=== PATIENT | male | born 1950 | race Hispanic/Latino ===

== ENCOUNTER 2017-02-21 15:11 | Inpatient (IN) | payer OTHER ==
[2017-02-21 15:11] VITALS: BMI 20.7
[2017-02-21] MEDS ORDERED: Piperacillin/Tazobact 3.375 GM in Sodium Chloride 0.9% 100 ML IVPB STA (15:41)
--- NOTE | 2017-02-21 16:06 | ED PDOC ---
HPI: General Adult Time Seen by Provider: 02/21/17 15:25 Chief Complaint (Nursing): Lower Extremity Problem/Injury Chief Complaint (Provider): R foot cellulitis History Per: Patient Additional Complaint(s): Pt. states 4-5 weeks ago he accidentally cut the bottom portion of his R big toe on his shower door. States he was seen in [place] 2 weeks after and was prescribed antibiotics which provided no relief. He was also instructed to f[facility] with [facility]. Today he was seen by Dr. Levi who instructed him to come to ED for further evaluation. Denies fever, discharge, numbness, tingling, other injury, hx of DM. Past Medical History Reviewed: Historical Data, Nursing Documentation, Vital Signs Vital Signs: Last Vital Signs Temp 98.5 F 02/21/17 15:17 Pulse 74 02/21/17 15:17 Resp 16 02/21/17 15:17 BP 161/80 H 02/21/17 15:17 Pulse Ox 100 02/21/17 16:09 - Medical History PMH: Arthritis, HTN Denies: Chronic Kidney Disease - Family History Family History: States: No Known Family Hx - Immunization History Hx Tetanus Toxoid Vaccination: No Hx Influenza Vaccination: No Hx Pneumococcal Vaccination: No - Home Medications Home Medications: Ambulatory Orders Medication Instructions Recorded oxyCODONE/Acetaminophen [Percocet 1 tab PO BID PRN 07/25/16 5/325 mg Tab] Losartan [Cozaar] 100 mg PO DAILY 02/21/17 - Allergies Allergies/Adverse Reactions: Allergies Allergy/AdvReac Type Severity Reaction Status Date / Time No Known Allergies Allergy Verified 02/21/17 15:17 Review of Systems ROS Statement: Except As Marked, All Systems Reviewed And Found Negative Musculoskeletal: Positive for: Foot Pain Physical Exam - Reviewed Nursing Documentation Reviewed: Yes Vital Signs Reviewed: Yes - Physical Exam Appears: Positive for: Well, Non-toxic, No Acute Distress Head Exam: Positive for: ATRAUMATIC, NORMAL INSPECTION, NORMOCEPHALIC Skin: Positive for: Normal Color, Warm. Negative for: Rash Eye Exam: Positive for: EOMI, Normal appearance, PERRL ENT: Positive for: Normal ENT Inspection Neck: Positive for: Normal, Painless ROM Cardiovascular/Chest: Positive for: Regular Rate, Rhythm Respiratory: Positive for: CNT, Normal Breath Sounds Pulses-Dorsalis Pedis (R): 2+ Gastrointestinal/Abdominal: Positive for: Normal Exam, Soft. Negative for: Tenderness Back: Positive for: Normal Inspection Extremity: Positive for: Normal ROM, Other (R foot: shallow ulcer noted on plantar surface of R great toe and surrounding erythema extending to dorsum of foot ) Neurologic/Psych: Positive for: Alert, Oriented - Laboratory Results Result Diagrams: 02/21/17 16:40 02/21/17 16:40 - ECG ECG: Positive for: Interpreted By Me ECG Rhythm: Positive for: Sinus Rhythm. Negative for: ST/T Changes Rate: 68 O2 Sat by Pulse Oximetry: 100 - Progress ED Course And Treament: Labs ordered. Blood culture x 2, wound culture ordered. Zosyn IV, vancomycin IV given. Case d/w podiatry and arrangements made for admission. Case d/w Dr. Herndon, med surgeon assistant, and arrangements made for admission. Foot x-ray: no osteo Disposition - Clinical Impression Clinical Impression: Cellulitis of foot - Patient ED Disposition Is Patient to be Admitted: Yes - Disposition Disposition Time: 17:47 Condition: STABLE
[2017-02-21] MEDS ORDERED: Piperacillin/Tazobact 3.375 gm Inj IVPB ONE (16:09)
[2017-02-21] MEDS ORDERED: Vancomycin 1 g Inj ONE (16:09)
[2017-02-21 16:51] LABS: BASO # 0.1 K/uL (0.0-0.2); BASO % 0.6 % (0.0-2.0); EOS # 0.1 K/uL (0.0-0.7); EOS % 0.6 % (0.0-4.0); HEMATOCRIT 37.4 % (35.0-51.0); LYMPH # 1.6 K/uL (1.0-4.3); LYMPH % 11.6 % (20.0-40.0); MEAN CELL VOLUME 97.3 fl (80.0-94.0); MEAN CORPUSCULAR HEMOGLOBIN 32.4 pg (27.0-31.0); MEAN CORPUSCULAR HGB CONC 33.3 g/dL (33.0-37.0); MEAN PLATELET VOLUME 7.3 fl (7.2-11.7); MONO # 1.1 K/uL (0.0-0.8); MONO % 8.2 % (0.0-10.0); RED CELL DISTRIBUTION WIDTH 14.8 % (11.5-14.5); WHITE BLOOD COUNT 13.9 K/uL (4.8-10.8)
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
[2017-02-21 17:11] LABS: PARTIAL THROMBOPLASTIN TIME 30.4 SECONDS (23.3-32.5)
[2017-02-21 17:13] LABS: ALB/GLOB RATIO 1.1 (1.0-2.1); ALKALINE PHOSPHATASE 81 U/L (38-126); ALT/SGPT 26 U/L (21-72); AST/SGOT 28 U/L (17-59); BILIRUBIN,TOTAL 0.9 mg/dl (0.2-1.3); BLOOD UREA NITROGEN 20 mg/dl (9-20); CALCIUM 9.9 mg/dL (8.4-10.2); CARBON DIOXIDE 28 mmol/L (22-30); CHLORIDE 98 mmol/L (98-107); GFR AFRICAN-AMERICAN > 60; GLUCOSE,RANDOM 110 mg/dL (75-110); POTASSIUM 3.8 MMOL/L (3.6-5.0); SODIUM 138 mmol/l (132-148); TOTAL PROTEIN 7.9 G/DL (6.3-8.2)
--- NOTE | 2017-02-21 17:14 | RAD ---
HISTORY: Medical clearance. Technique: Single view portable semi erect @ 16:07. COMPARISON: No prior. FINDINGS: LUNGS: No active pulmonary disease. PLEURA: No significant pleural effusion identified, no pneumothorax apparent. CARDIOVASCULAR: No radiographic findings to suggest acute or significant cardiovascular disease. OSSEOUS STRUCTURES: No significant abnormalities. VISUALIZED UPPER ABDOMEN: Normal. OTHER FINDINGS: None. IMPRESSION: No active disease.
--- NOTE | 2017-02-21 17:15 | RAD ---
PROCEDURE: Right Foot Radiographs. HISTORY: R foot cellulitis COMPARISON: None. FINDINGS: BONES: Postoperative changes related to orthopedic hardware distal fibula. Severe degenerative changes right ankle incompletely visualized affecting talotibial and talofibular joints. JOINTS: Normal. SOFT TISSUES: Normal. OTHER FINDINGS: None. IMPRESSION: Postoperative changes, secondary degenerative/ posttraumatic findings primarily about the ankle affecting talus, distal tibia and fibula primarily. No evidence of acute osteomyelitis.
[2017-02-21 17:55] LABS: VENOUS BLOOD GAS PCO2 46 mmHg (40-60)
[2017-02-22] MEDS: Piperacillin/Tazobact 3.375 GM in Sodium Chloride 0.9% 100 ML IVPB SCH ×3 (01:02→17:06)
--- NOTE | 2017-02-22 07:56 | CP.PCM.PN ---
Subjective - Date & Time of Evaluation Date of Evaluation: 02/22/17 Time of Evaluation: 08:45 - Subjective Subjective: PODIATRY PROGRESS NOTE FOR DR. LEVI: 66 yo male patient w/ pmh CVA, HTN, lumbar radiculopathy seen at the bedside this morning for f/u of right hallux ulceration. Pt seen resting comfortably in bed at time of visit. Denies any pain or discomfort to the foot or leg today. Denies f/n/v/c/sob/cp. Has been wearing surgical shoe with heal weight-bearing to get to bathroom. Denies any other complaints at this time. Objective - Vital Signs/Intake and Output Vital Signs (last 24 hours): Temp Pulse Resp BP Pulse Ox 98.2 F 86 20 150/70 98 02/21/17 20:30 02/21/17 20:30 02/21/17 20:30 02/21/17 20:30 02/21/17 20:30 - Medications Medications: Current Medications Vancomycin HCl 1 gm/ Sodium (Chloride) 250 mls @ 250 mls/hr IVPB Q12H REPLACED BY [facility] Last Admin: 02/21/17 22:57 Dose: Not Given Piperacillin Sod/Tazobactam (Sod 3.375 gm/ Sodium Chloride) 100 mls @ 100 mls/ hr IVPB Q8 REPLACED BY [facility] Last Admin: 02/22/17 01:02 Dose: 100 mls/hr Losartan Potassium (Cozaar) 100 mg PO DAILY REPLACED BY [facility] Oxycodone/Acetaminophen (Percocet 5/325 Mg Tab) 1 tab PO BID PRN PRN Reason: Pain, severe (8-10) Stop: 02/24/17 22:01 - Labs Labs: PT 9.7 SECONDS (9.6-11.2) 02/21/17 16:40 INR 0.93 (0.92-1.08) 02/21/17 16:40 APTT 30.4 SECONDS (23.3-32.5) 02/21/17 16:40 - Constitutional Appears: Non-toxic, No Acute Distress - Extremities Exam Extremities Exam: absent: Calf Tenderness Additional comments: RLE exam: Dressing appears c/d/i to the right foot. VASC- DP pulse is palpable (2/4), PT pulse non-palpable, skin temp runs warm to warm with increased callor noted to dorsal-medial aspect of foot as well as hallux circumferentially, 2+ non-pitting edema noted to dorsum, and medial- plantar aspect of foot. NEURO- gross pedal sensation is intact DERM- ulceration to plantar aspect of hallux IPJ with mixed fibro-granular base , 0.5cc purulent drainage expressed on compression, no malodor, no tracking, erythema is noted to dorsal-medial as well as plantar-medial aspect of foot from mid-foot extending distally to hallux circumferentially ORTHO- slight tenderness to palpation of hallux ulceration, diffuse tenderness to palpation of foot, able to flex and extend all digits - Neurological Exam Neurological Exam: Alert, Awake, Oriented x3 - Psychiatric Exam Psychiatric exam: Normal Affect, Normal Mood Assessment and Plan - Assessment and Plan (Free Text) Assessment: 66 yo male patient w/ pmh of stroke, HTN, lumbar radiculopathy seen in ED for hallux ulceration and pedal cellulitis 2/2 infection Plan: --Pt S&E at bedside --Plan discussed with attending Dr. Levi --Chart, labs, vitals reviewed: afebrile, wbc 13.9 w/ left shift --ESR elevated at 89 --F/u CRP --f/u wound cx --IV abx per ID (Dr. Higginbotham), vanc and zoabeln --Right foot x-ray: no evidence of gas, (-) for OM, postoperative changes secondary to degenerative/posttraumatic findings about ankle affecting talus, disal tibia, fibula --3 phase bone scan ordered for today (r/o OM). MRI contraindicated due to ORIF right distal fibula (metal not compatible) --Consult in for Dr. Morales to evaluate lower extremity arterial flow. --Arterial doppler ordered --Pending results of bone scan and arterial doppler, for possible debridement w / Dr. Levi later in week. --Pt is medically stable for OR (if needed) per Dr. Herndon --All questions and concerns addressed with patient --Podiatry will continue to follow while in house.
--- NOTE | 2017-02-22 09:14 | CP.PCM.HP ---
History of Present Illness - History of Present Illness History of Present Illness: This is a 66 y/o male admitted for right foot cellulitis. He sustained a wound after an accident at home ( from a shower door) about 5 weeks ago and developed cellulitis and infected wound of the right big toe.He was treated at [facility] and given po antibiotics but had a poor response, Had seen Dr Levi and advised Iv antibiotics and hospitalization. Medical Hx Fracture right foot HTN on Losartan CVA with gait dysfunction back surgery Chronic pain on Percocet patient lives alone. Initial labs showed WBC 13 plus Present on Admission - Present on Admission Any Indicators Present on Admission: No History of DVT/PE: No History of Uncontrolled Diabetes: No Urinary Catheter: No Decubitus Ulcer Present: No Review of Systems - Musculoskeletal Musculoskeletal: Back Pain - Integumentary Integumentary: Non-Healing Lesions Past Patient History - Past Medical History & Family History Past Medical History?: Yes - Past Social History Smoking Status: Light Smoker < 10 Cigarettes Daily - CARDIAC Hx Hypertension: Yes - PULMONARY Hx Respiratory Disorders: No - NEUROLOGICAL Hx Neurological Disorder: No - HEENT Hx HEENT Problems: No - RENAL Hx Chronic Kidney Disease: No - ENDOCRINE/METABOLIC Hx Endocrine Disorders: No - HEMATOLOGICAL/ONCOLOGICAL Hx AIDS: No Hx Human Immunodeficiency Virus (HIV): No - INTEGUMENTARY Hx Dermatological Problems: No - MUSCULOSKELETAL/RHEUMATOLOGICAL Hx Arthritis: Yes Hx Falls: Yes Other/Comment: lumbar radiculopathy - GASTROINTESTINAL Hx Gastrointestinal Disorders: No - GENITOURINARY/GYNECOLOGICAL Hx Genitourinary Disorders: No - PSYCHIATRIC Hx Substance Use: No - SURGICAL HISTORY Hx Surgeries: Yes Hx Open Reduction Internal Fixation: Yes (rt distal fibula) Other/Comment: epidural,[id number] - ANESTHESIA Hx Anesthesia: Yes Hx Anesthesia Reactions: No Hx Malignant Hyperthermia: No Meds Allergies/Adverse Reactions: Allergies Allergy/AdvReac Type Severity Reaction Status Date / Time No Known Allergies Allergy Verified 02/21/17 15:17 Physical Exam - Head Exam Head Exam: NORMAL INSPECTION - Eye Exam Eye Exam: Normal appearance - Respiratory Exam Respiratory Exam: Clear to Auscultation Bilateral - Cardiovascular Exam Cardiovascular Exam: REGULAR RHYTHM - GI/Abdominal Exam GI & Abdominal Exam: Normal Bowel Sounds - Neurological Exam Neurological exam: CN II-XII Intact, Oriented x3 - Psychiatric Exam Psychiatric exam: Normal Mood - Skin Additional comments: infected nonhealing wound right big toe and surrounding cellulitis Results - Vital Signs Recent Vital Signs: Last Vital Signs Temp 98.7 F 02/22/17 08:16 Pulse 71 02/22/17 08:26 Resp 20 02/22/17 08:16 BP 137/84 02/22/17 08:26 Pulse Ox 98 02/22/17 08:16 - Labs Result Diagrams: 02/21/17 16:40 02/21/17 16:40 Labs: Laboratory Results - last 24 hr 02/21/17 02/21/17 02/21/17 17:54 18:26 20:45 ESR 89 H pO2 32 VBG pH 7.40 VBG pCO2 46 VBG HCO3 26.3 VBG Total CO2 29.9 H VBG O2 Sat (Calc) 65.4 H VBG Base Excess 3.0 H VBG Potassium 4.1 Sodium 133.0 Chloride 103.0 Glucose 105 Lactate 1.6 FiO2 21.0 Venous Blood Potassium 4.1 Blood Type Confirm A POSITIVE Assessment & Plan (1) Cellulitis of foot Status: Acute (2) Hypertension Status: Acute (3) Infected wound Status: Acute - Assessment and Plan (Free Text) Plan: Iv antibiotics' podiatry cardiology arterial US lower ext CXR and ekg reviewed pain meds sed rate bone scan medically stable for debridemet procedure.
[2017-02-22 11:16] LABS: BASO # 0.1 K/uL (0.0-0.2); EOS # 0.1 K/uL (0.0-0.7); EOS % 0.5 % (0.0-4.0); HEMATOCRIT 35.1 % (35.0-51.0); LYMPH # 1.5 K/uL (1.0-4.3); LYMPH % 11.7 % (20.0-40.0); MEAN CELL VOLUME 96.1 fl (80.0-94.0); MEAN CORPUSCULAR HEMOGLOBIN 32.8 pg (27.0-31.0); MEAN CORPUSCULAR HGB CONC 34.2 g/dL (33.0-37.0); MEAN PLATELET VOLUME 7.3 fl (7.2-11.7); MONO % 7.9 % (0.0-10.0); NEUT # 9.8 K/uL (1.8-7.0); NEUT % 78.9 % (50.0-75.0); NRBC % 0.1 % (0.0-0.0); RED CELL DISTRIBUTION WIDTH 14.6 % (11.5-14.5); RETIC% 1.7 % (0.5-1.5); WHITE BLOOD COUNT 12.4 K/uL (4.8-10.8)
--- NOTE | 2017-02-22 11:38 | CARD ---
APPROVED REPORT EKG Measurement Heart [id number] <Conclusion> Normal sinus rhythm Normal ECG
--- NOTE | 2017-02-22 16:02 | US ---
PROCEDURE: Duplex ultrasound of the right lower extremity arteries. HISTORY: evalute low ext arterial flow COMPARISON: None available. TECHNIQUE: Grayscale and duplex Doppler evaluation of the left common femoral, superficial femoral, popliteal, posterior tibial and dorsalis pedis arteries was performed.. FINDINGS: COMMON FEMORAL ARTERY: Patent. Maximal flow velocity of 80 cm/s. Triphasic waveform SUPERFICIAL FEMORAL ARTERY:Patent. Maximal flow velocity of 118 cm/s. Triphasic waveform POPLITEAL ARTERY:Patent. Maximal flow velocity of 30 cm/s. Monophasic waveform, spectral broadening. POSTERIOR TIBIAL ARTERY: Patent. Maximal flow velocity of 30 cm/s. Monophasic waveforms DORSALIS PEDIS ARTERY: Nondiagnostic assessment dorsalis pedis artery because of overlying bandages. OTHER FINDINGS: None. IMPRESSION: Peripheral arterial flow documented to the level of the right posterior tibial artery. Nondiagnostic assessment of the dorsalis pedis vessel. Satisfactory inflow, a diminished peak systolic velocities popliteal artery and posterior tibial artery. Associated atherosclerotic disease, moderate identified.
--- NOTE | 2017-02-22 16:28 | NM ---
PROCEDURE: Three-phase bone scan HISTORY: right foot ulcer, r/o OM/abscess COMPARISON: February 21, 2017. Right foot radiographs. TECHNIQUE: Radionuclide dose: 26.5 Tc99m MDP Site of administration: Indwelling intravenous line Technique: Three-phase FINDINGS: Flow component: Increased flow to the right lower extremity particularly medial at at and beyond the metatarsal phalangeal junctions. Blood pool component: Accumulation of radionuclide primarily about the medial and plantar aspects of the right foot Delayed images at 3:00: Retention of radionuclide right ankle consistent with postoperative findings best visualized on recent radiographs. Focal increased uptake first digit right foot. IMPRESSION: Findings consistent with cellulitis without evidence of acute osteomyelitis.
--- NOTE | 2017-02-22 17:38 | CP.PCM.CON ---
History of Present Illness - History of Present Illness History of Present Illness: Pt. states 4-5 weeks ago he accidentally cut the bottom portion of his R big toe on his shower door. [facility] he was seen in [place] 2 weeks after and was prescribed antibiotics which provided no relief. He was also instructed [facility] Today he was seen by Dr. Levi who instructed him to come to ED for further evaluation. Denies fever, discharge, numbness, tingling, other injury, hx of DM. started empiric iv rx bone scan pending - Medical History PMH: Arthritis, HTN Denies: Chronic Kidney Disease Review of Systems - Constitutional Constitutional: absent: As Per HPI, Anorexia, Chills, Daytime Sleepiness, Excessive Sweating, Fatigue, Fever, Frequent Falls, Headache, Increased Appetite , Lethargy, Malaise, Night Sweats, Snoring, Sleep Apnea, Weight Gain, Weight Loss, Weakness, Other - EENT Eyes: absent: As Per HPI, Blind Spots, Blurred Vision, Change in Vision, Decreased Night Vision, Diplopia, Discharge, Dry Eye, Exophthalmos, Floaters, Irritation, Itchy Eyes, Loss of Peripheral Vision, Pain, Photophobia, Requires Corrective Lenses, Sees Flashes, Spots in Vision, Tunnel Vision, Other Visual Disturbances, Loss of Vision, Other Ears: absent: As Per HPI, Decreased Hearing, Ear Discharge, Ear Pain, Tinnitus, Abnormal Hearing, Disequilibrium, Dizziness, Other Nose/Mouth/Throat: absent: As Per HPI, Epistaxis, Nasal Congestion, Nasal Discharge, Nasal Obstruction, Nasal Trauma, Nose Pain, Post Nasal Drip, Sinus Pain, Sinus Pressure, Bleeding Gums, Change in Voice, Dental Pain, Dry Mouth, Dysphagia, Halitosis, Hoarsness, Lip Swelling, Mouth Lesions, Mouth Pain, Odynophagia, Sore Throat, Throat Swelling, Tongue Swelling, Facial Pain, Neck Pain, Neck Mass, Other - Cardiovascular Cardiovascular: absent: As Per HPI, Acrocyanosis, Chest Pain, Chest Pain at Rest , Chest Pain with Activity, Claudication, Diaphoresis, Dyspnea, Dyspnea on Exertion, Edema, Irregular Heart Rhythm, Pain Radiating to Arm/Neck/Jaw, Leg Edema, Leg Ulcers, Lightheadedness, Orthopnea, Palpitations, Paroxysmal Nocturnal Dyspnea, Pedal Edema, Radiating Pain, Rapid Heart Rate, Slow Heart Rate, Syncope, Other - Respiratory Respiratory: absent: As Per HPI, Cough, Dyspnea, Hemoptysis, Dyspnea on Exertion , Wheezing, Snoring, Stridor, Pain on Inspiration, Chest Congestion, Excessive Mucous Production, Change in Mucous Color, Pain with Coughing, Other - Gastrointestinal Gastrointestinal: absent: As Per HPI, Abdominal Pain, Belching, Bloating, Change in Bowel Habits, Change in Stool Character, Coffee Ground Emesis, Constipation, Cramping, Diarrhea, Dyspepsia, Dysphagia, Early Satiety, Excessive Flatus, Fecal Incontinence, Heartburn, Hematemesis, Hematochezia, Loose Stools, Melena, Nausea, Odynophagia, Temesmus, Vomiting, Other - Genitourinary Genitourinary: absent: As Per HPI, Change in Urinary Stream, Difficulty Urinating, Dysuria, Flank Pain, Hematuria, Pyuria, Nocturia, Urinary Incontinence, Urinary Frequency, Urinary Hesitance, Urinary Urgency, Voiding Freq/Small Amts, Freq UTI, Hx Renal/Bladder Calculi, Hx /Renal Surgery, Bladder Distension, Other - Musculoskeletal Musculoskeletal: As Per HPI - Integumentary Integumentary: As Per HPI, Skin Pain, Wounds - Neurological Neurological: absent: As Per HPI, Abnormal Gait, Abnormal Hearing, Abnormal Movements, Abnormal Speech, Behavioral Changes, Burning Sensations, Confusion, Convulsions, Disequilibrium, Dizziness, Numbness, Focal Weakness, Frequent Falls , Headaches, Lack of Coordination, Loss of Vision, Memory Loss, Paresthesias, Radicular Pain, Restless Legs, Sensory Deficit, Syncope, Tingling, Tremor, Vertigo, Weakness, Other Visual Disturbances, Other - Psychiatric Psychiatric: absent: As Per HPI, Abnormal Sleep Pattern, Anhedonia, Anxiety, Auditory Hallucinations, Behavioral Changes, Change in Appetite, Change in Libido, Confusion, Depression, Difficulty Concentrating, Hallucinations, Homicidal Ideation, Hopelessness, Irritability, Memory Loss, Mood Swings, Panic Attacks, Paranoia, Suicidal Ideation, Visual Hallucinations, Tactile Hallucinations, Other - Endocrine Endocrine: absent: As Per HPI, Change in Body Appearance, Change in Libido, Cold Intolorance, Deepening of Voice, Excessive Sweating, Fatigue, Flushing, Heat Intolorance, Increase in Ring/Shoe/Hat Size, Palpitations, Polydipsia, Polyphagia, Polyuria, Other - Hematologic/Lymphatic Hematologic: absent: As Per HPI, Easy Bleeding, Easy Bruising, Lymphadenopathy, Other Past Patient History - Past Medical History & Family History Past Medical History?: Yes - Past Social History Smoking Status: Light Smoker < 10 Cigarettes Daily - CARDIAC Hx Hypertension: Yes - PULMONARY Hx Respiratory Disorders: No - NEUROLOGICAL Hx Neurological Disorder: No - HEENT Hx HEENT Problems: No - RENAL Hx Chronic Kidney Disease: No - ENDOCRINE/METABOLIC Hx Endocrine Disorders: No - HEMATOLOGICAL/ONCOLOGICAL Hx AIDS: No Hx Human Immunodeficiency Virus (HIV): No - INTEGUMENTARY Hx Dermatological Problems: No - MUSCULOSKELETAL/RHEUMATOLOGICAL Hx Arthritis: Yes Hx Falls: Yes Other/Comment: lumbar radiculopathy - GASTROINTESTINAL Hx Gastrointestinal Disorders: No - GENITOURINARY/GYNECOLOGICAL Hx Genitourinary Disorders: No - PSYCHIATRIC Hx Substance Use: No - SURGICAL HISTORY Hx Surgeries: Yes Hx Open Reduction Internal Fixation: Yes (rt distal fibula) Other/Comment: epidural,[id number] - ANESTHESIA Hx Anesthesia: Yes Hx Anesthesia Reactions: No Hx Malignant Hyperthermia: No Meds Allergies/Adverse Reactions: Allergies Allergy/AdvReac Type Severity Reaction Status Date / Time No Known Allergies Allergy Verified 02/21/17 15:17 - Medications Medications: Current Medications Vancomycin HCl 1 gm/ Sodium (Chloride) 250 mls @ 250 mls/hr IVPB Q12H [facility] Last Admin: 02/22/17 10:29 Dose: 250 mls/hr Piperacillin Sod/Tazobactam (Sod 3.375 gm/ Sodium Chloride) 100 mls @ 100 mls/ hr IVPB Q8 [facility] Last Admin: 02/22/17 17:06 Dose: 100 mls/hr Losartan Potassium (Cozaar) 100 mg PO DAILY [facility] Last Admin: 02/22/17 08:26 Dose: 100 mg Oxycodone/Acetaminophen (Percocet 5/325 Mg Tab) 1 tab PO BID PRN PRN Reason: Pain, severe (8-10) Stop: 02/24/17 22:01 Physical Exam - Constitutional Appears: Non-toxic, Chronically Ill - Head Exam Head Exam: NORMOCEPHALIC - Eye Exam Eye Exam: PERRL. absent: Scleral icterus - ENT Exam ENT Exam: Mucous Membranes Dry - Neck Exam Neck exam: Negative for: Lymphadenopathy - Respiratory Exam Respiratory Exam: Decreased Breath Sounds, Clear to Auscultation Bilateral - Cardiovascular Exam Cardiovascular Exam: REGULAR RHYTHM, +S1, +S2 - GI/Abdominal Exam GI & Abdominal Exam: Diminished Bowel Sounds, Soft. absent: Tenderness - Rectal Exam Rectal Exam: Deferred - Exam Exam: NORMAL INSPECTION - Extremities Exam Extremities exam: Positive for: pedal edema, tenderness, pedal pulses present. Negative for: calf tenderness - Back Exam Back exam: absent: CVA tenderness (L), CVA tenderness (R) - Neurological Exam Neurological exam: Alert, CN II-XII Intact, Oriented x3, Reflexes Normal - Psychiatric Exam Psychiatric exam: Normal Mood - Skin Skin Exam: Dry, Intact Results - Vital Signs Recent Vital Signs: Last Vital Signs Temp 98.6 F 02/22/17 17:24 Pulse 62 02/22/17 17:24 Resp 18 02/22/17 17:24 BP 152/70 H 02/22/17 17:24 Pulse Ox 99 02/22/17 17:24 - Labs Result Diagrams: 02/22/17 11:04 02/21/17 16:40 Labs: Laboratory Results - last 24 hr 02/21/17 02/21/17 02/21/17 17:54 18:26 20:45 WBC RBC Hgb Hct MCV MCH MCHC RDW Plt Count MPV Neut % (Auto) Lymph % (Auto) [place] % (Auto) Eos % (Auto) Baso % (Auto) Neut # Lymph # [place] # Eos # Baso # ESR 89 H Retic Count pO2 32 VBG pH 7.40 VBG pCO2 46 VBG HCO3 26.3 VBG Total CO2 29.9 H VBG O2 Sat (Calc) 65.4 H VBG Base Excess 3.0 H VBG Potassium 4.1 Sodium 133.0 Chloride 103.0 Glucose 105 Lactate 1.6 FiO2 21.0 Venous Blood Potassium 4.1 Blood Type Confirm A POSITIVE 02/22/17 11:04 WBC 12.4 H RBC 3.66 L Hgb 12.0 Hct 35.1 MCV 96.1 H MCH 32.8 H MCHC 34.2 RDW 14.6 H Plt Count 552 H MPV 7.3 Neut % (Auto) 78.9 H Lymph % (Auto) 11.7 L [place] % (Auto) 7.9 Eos % (Auto) 0.5 Baso % (Auto) 1.0 Neut # 9.8 H Lymph # 1.5 [place] # 1.0 H Eos # 0.1 Baso # 0.1 ESR 101 H Retic Count 1.7 H pO2 VBG pH VBG pCO2 VBG HCO3 VBG Total CO2 VBG O2 Sat (Calc) VBG Base Excess VBG Potassium Sodium Chloride Glucose Lactate FiO2 Venous Blood Potassium Blood Type Confirm Assessment & Plan (1) Cellulitis of foot Status: Acute (2) Hypertension Status: Acute (3) Infected wound Status: Acute - Assessment and Plan (Free Text) Assessment: r/o OM await bone scan/ MRI IV rx re-ordered
--- NOTE | 2017-02-22 18:19 | CP.PCM.CON ---
History of Present Illness - History of Present Illness History of Present Illness: I was asked to perform endovascular evaluation by Dr. Jason. Patient is a 66 year old male with PMH HTN, hypercholeterolemia who presents with wound of the great toe of the right foot. The patient had hema acident about 6 weeks aog, and the wound has been slow to heal. The patient is planned for debridement. The patient is s/p arterial duplex revealing monophasic flow in the right poplitieal artery. Review of Systems - Constitutional Constitutional: absent: As Per HPI, Anorexia, Chills, Daytime Sleepiness, Excessive Sweating, Fatigue, Fever, Frequent Falls, Headache, Increased Appetite , Lethargy, Malaise, Night Sweats, Snoring, Sleep Apnea, Weight Gain, Weight Loss, Weakness, Other - EENT Eyes: absent: As Per HPI, Blind Spots, Blurred Vision, Change in Vision, Decreased Night Vision, Diplopia, Discharge, Dry Eye, Exophthalmos, Floaters, Irritation, Itchy Eyes, Loss of Peripheral Vision, Pain, Photophobia, Requires Corrective Lenses, Sees Flashes, Spots in Vision, Tunnel Vision, Other Visual Disturbances, Loss of Vision, Other Ears: absent: As Per HPI, Decreased Hearing, Ear Discharge, Ear Pain, Tinnitus, Abnormal Hearing, Disequilibrium, Dizziness, Other Nose/Mouth/Throat: absent: As Per HPI, Epistaxis, Nasal Congestion, Nasal Discharge, Nasal Obstruction, Nasal Trauma, Nose Pain, Post Nasal Drip, Sinus Pain, Sinus Pressure, Bleeding Gums, Change in Voice, Dental Pain, Dry Mouth, Dysphagia, Halitosis, Hoarsness, Lip Swelling, Mouth Lesions, Mouth Pain, Odynophagia, Sore Throat, Throat Swelling, Tongue Swelling, Facial Pain, Neck Pain, Neck Mass, Other - Cardiovascular Cardiovascular: absent: As Per HPI, Acrocyanosis, Chest Pain, Chest Pain at Rest , Chest Pain with Activity, Claudication, Diaphoresis, Dyspnea, Dyspnea on Exertion, Edema, Irregular Heart Rhythm, Pain Radiating to Arm/Neck/Jaw, Leg Edema, Leg Ulcers, Lightheadedness, Orthopnea, Palpitations, Paroxysmal Nocturnal Dyspnea, Pedal Edema, Radiating Pain, Rapid Heart Rate, Slow Heart Rate, Syncope, Other - Respiratory Respiratory: absent: As Per HPI, Cough, Dyspnea, Hemoptysis, Dyspnea on Exertion , Wheezing, Snoring, Stridor, Pain on Inspiration, Chest Congestion, Excessive Mucous Production, Change in Mucous Color, Pain with Coughing, Other - Gastrointestinal Gastrointestinal: absent: As Per HPI, Abdominal Pain, Belching, Bloating, Change in Bowel Habits, Change in Stool Character, Coffee Ground Emesis, Constipation, Cramping, Diarrhea, Dyspepsia, Dysphagia, Early Satiety, Excessive Flatus, Fecal Incontinence, Heartburn, Hematemesis, Hematochezia, Loose Stools, Melena, Nausea, Odynophagia, Temesmus, Vomiting, Other - Genitourinary Genitourinary: absent: As Per HPI, Change in Urinary Stream, Difficulty Urinating, Dysuria, Flank Pain, Hematuria, Pyuria, Nocturia, Urinary Incontinence, Urinary Frequency, Urinary Hesitance, Urinary Urgency, Voiding Freq/Small Amts, Freq UTI, Hx Renal/Bladder Calculi, Hx /Renal Surgery, Bladder Distension, Other - Musculoskeletal Musculoskeletal: Radiating Pain into Limb - Integumentary Integumentary: absent: As Per HPI, Acne, Alopecia, Bleeding Lesions, Change in Hair, Change in Nails, Change in Pigmentation, Changing Lesions, Dry Skin, Erythema, Furuncle, Hirsutism, Lesions, New Lesions, Non-Healing Lesions, Photosensitivity, Pruritus, Rash, Skin Pain, Skin Ulcer, Sores, Striae, Swelling , Unusual Bruising, Wounds, Jaundice, Other - Neurological Neurological: absent: As Per HPI, Abnormal Gait, Abnormal Hearing, Abnormal Movements, Abnormal Speech, Behavioral Changes, Burning Sensations, Confusion, Convulsions, Disequilibrium, Dizziness, Numbness, Focal Weakness, Frequent Falls , Headaches, Lack of Coordination, Loss of Vision, Memory Loss, Paresthesias, Radicular Pain, Restless Legs, Sensory Deficit, Syncope, Tingling, Tremor, Vertigo, Weakness, Other Visual Disturbances, Other - Psychiatric Psychiatric: absent: As Per HPI, Abnormal Sleep Pattern, Anhedonia, Anxiety, Auditory Hallucinations, Behavioral Changes, Change in Appetite, Change in Libido, Confusion, Depression, Difficulty Concentrating, Hallucinations, Homicidal Ideation, Hopelessness, Irritability, Memory Loss, Mood Swings, Panic Attacks, Paranoia, Suicidal Ideation, Visual Hallucinations, Tactile Hallucinations, Other - Endocrine Endocrine: absent: As Per HPI, Change in Body Appearance, Change in Libido, Cold Intolorance, Deepening of Voice, Excessive Sweating, Fatigue, Flushing, Heat Intolorance, Increase in Ring/Shoe/Hat Size, Palpitations, Polydipsia, Polyphagia, Polyuria, Other - Hematologic/Lymphatic Hematologic: absent: As Per HPI, Easy Bleeding, Easy Bruising, Lymphadenopathy, Other Past Patient History - Past Medical History & Family History Past Medical History?: Yes - Past Social History Smoking Status: Light Smoker < 10 Cigarettes Daily - CARDIAC Hx Hypertension: Yes - PULMONARY Hx Respiratory Disorders: No - NEUROLOGICAL Hx Neurological Disorder: No - HEENT Hx HEENT Problems: No - RENAL Hx Chronic Kidney Disease: No - ENDOCRINE/METABOLIC Hx Endocrine Disorders: No - HEMATOLOGICAL/ONCOLOGICAL Hx AIDS: No Hx Human Immunodeficiency Virus (HIV): No - INTEGUMENTARY Hx Dermatological Problems: No - MUSCULOSKELETAL/RHEUMATOLOGICAL Hx Arthritis: Yes Hx Falls: Yes Other/Comment: lumbar radiculopathy - GASTROINTESTINAL Hx Gastrointestinal Disorders: No - GENITOURINARY/GYNECOLOGICAL Hx Genitourinary Disorders: No - PSYCHIATRIC Hx Substance Use: No - SURGICAL HISTORY Hx Surgeries: Yes Hx Open Reduction Internal Fixation: Yes (rt distal fibula) Other/Comment: [id number] - ANESTHESIA Hx Anesthesia: Yes Hx Anesthesia Reactions: No Hx Malignant Hyperthermia: No Meds Allergies/Adverse Reactions: Allergies Allergy/AdvReac Type Severity Reaction Status Date / Time No Known Allergies Allergy Verified 02/21/17 15:17 - Medications Medications: Current Medications Vancomycin HCl 1 gm/ Sodium (Chloride) 250 mls @ 250 mls/hr IVPB Q12H [facility] Last Admin: 02/22/17 10:29 Dose: 250 mls/hr Piperacillin Sod/Tazobactam (Sod 3.375 gm/ Sodium Chloride) 100 mls @ 100 mls/ hr IVPB Q8 [facility] Last Admin: 02/22/17 17:06 Dose: 100 mls/hr Losartan Potassium (Cozaar) 100 mg PO DAILY [facility] Last Admin: 02/22/17 08:26 Dose: 100 mg Oxycodone/Acetaminophen (Percocet 5/325 Mg Tab) 1 tab PO BID PRN PRN Reason: Pain, severe (8-10) Stop: 02/24/17 22:01 Physical Exam - Constitutional Appears: Non-toxic - Head Exam Head Exam: NORMAL INSPECTION - Eye Exam Eye Exam: Normal appearance - ENT Exam ENT Exam: Mucous Membranes Moist - Neck Exam Neck exam: Positive for: Full Rom - Respiratory Exam Respiratory Exam: NORMAL BREATHING PATTERN - Cardiovascular Exam Cardiovascular Exam: REGULAR RHYTHM - GI/Abdominal Exam GI & Abdominal Exam: Normal Bowel Sounds - Rectal Exam Rectal Exam: Deferred - Extremities Exam Extremities exam: Positive for: pedal pulses present. Negative for: pedal edema Additional comments: diminished popliteal pulse - Back Exam Back exam: NORMAL INSPECTION - Neurological Exam Neurological exam: Alert, Oriented x3 - Psychiatric Exam Psychiatric exam: Normal Affect - Skin Skin Exam: Normal Color Results - Vital Signs Recent Vital Signs: Last Vital Signs Temp 98.6 F 02/22/17 17:24 Pulse 62 02/22/17 17:24 Resp 18 02/22/17 17:24 BP 152/70 H 02/22/17 17:24 Pulse Ox 99 02/22/17 17:24 - Labs Result Diagrams: 02/22/17 11:04 02/21/17 16:40 Labs: Laboratory Results - last 24 hr 02/21/17 02/21/17 02/22/17 18:26 20:45 11:04 WBC 12.4 H RBC 3.66 L Hgb 12.0 Hct 35.1 MCV 96.1 H MCH 32.8 H MCHC 34.2 RDW 14.6 H Plt Count 552 H MPV 7.3 Neut % (Auto) 78.9 H Lymph % (Auto) 11.7 L [place] % (Auto) 7.9 Eos % (Auto) 0.5 Baso % (Auto) 1.0 Neut # 9.8 H Lymph # 1.5 [place] # 1.0 H Eos # 0.1 Baso # 0.1 ESR 89 H 101 H Retic Count 1.7 H Blood Type Confirm A POSITIVE - EKG Data EKG Interpreted by: Myself Assessment & Plan (1) PAD (peripheral artery disease) Assessment and Plan: monophasic flow noted on arterial duplex. given poor wound healing will need to assess adequate distal perfusion. will schedule peripheral angiogram. patient agrees. Status: Acute
[2017-02-22] MEDS: Oxycodone/Acetaminophen 5/325 mg Tab PO PRN (21:36)
[2017-02-23] MEDS: Piperacillin/Tazobact 3.375 GM in Sodium Chloride 0.9% 100 ML IVPB SCH ×3 (00:04→16:59)
[2017-02-23] MEDS: Oxycodone/Acetaminophen 5/325 mg Tab PO PRN ×2 (03:11→15:46)
--- NOTE | 2017-02-23 16:45 | CP.PCM.PN ---
Subjective - Date & Time of Evaluation Date of Evaluation: 02/23/17 Time of Evaluation: 14:20 - Subjective Subjective: PODIATRY PROGRESS NOTE FOR DR. LEVI: 66 yo male patient seen at bedside today for f/u of right hallux ulceration. Pt seen resting in bed at time of visit. Pt is s/p angiogram w/ Dr. Morales at [facility] earlier today. Pt denies any pain or discomfort to the foot at this time, however does complain of low back pain. Denies f/n/v/c/sob/cp at this time. Is asking for food as he has not eaten today. Objective - Vital Signs/Intake and Output Vital Signs (last 24 hours): Temp Pulse Resp BP Pulse Ox 97.4 F L 69 20 164/92 H 99 02/23/17 16:15 02/23/17 16:15 02/23/17 16:15 02/23/17 16:15 02/23/17 16:15 - Medications Medications: Current Medications Clopidogrel Bisulfate (Plavix) 75 mg PO DAILY [facility] Piperacillin Sod/Tazobactam (Sod 3.375 gm/ Sodium Chloride) 100 mls @ 100 mls/ hr IVPB Q8 [facility] Last Admin: 02/23/17 08:18 Dose: 100 mls/hr Vancomycin HCl 1 gm/ Sodium (Chloride) 250 mls @ 250 mls/hr IVPB Q12@1700,0500 [facility] Losartan Potassium (Cozaar) 100 mg PO DAILY [facility] Last Admin: 02/23/17 08:17 Dose: 100 mg Oxycodone/Acetaminophen (Percocet 5/325 Mg Tab) 1 tab PO BID PRN PRN Reason: Pain, severe (8-10) Stop: 02/24/17 22:01 Last Admin: 02/23/17 15:46 Dose: 1 tab - Labs Labs: 02/22/17 11:04 PT 9.7 SECONDS (9.6-11.2) 02/21/17 16:40 INR 0.93 (0.92-1.08) 02/21/17 16:40 APTT 30.4 SECONDS (23.3-32.5) 02/21/17 16:40 - Constitutional Appears: Well, Non-toxic, No Acute Distress - Extremities Exam Extremities Exam: absent: Calf Tenderness Additional comments: RLE exam: Dressing appears c/d/i to the right foot. VASC- DP pulse is palpable (2/4), PT pulse non-palpable, skin temp runs warm to warm w/ increased callor noted to dorsal-medial aspect of foot as well as hallux circumferentially, 2+ non-pitting edema noted to dorsum, and medial- plantar aspect of foot. NEURO- gross pedal sensation is intact DERM- ulceration to plantar aspect of hallux IPJ with mixed fibro-granular base , no drainage on compression/no purulence, no malodor, no tracking, erythema is noted to dorsal-medial as well as plantar-medial aspect of foot from mid-foot extending distally to hallux circumferentially (appears to be improving) ORTHO- no tenderness to palpation of ulcer today - Neurological Exam Neurological Exam: Alert, Awake, Oriented x3 - Psychiatric Exam Psychiatric exam: Normal Affect, Normal Mood Assessment and Plan - Assessment and Plan (Free Text) Assessment: 66 yo male patient w/ pmh of stroke, HTN, lumbar radiculopathy seen at bedside today for f/u right hallux ulceration & cellulitis Plan: --Pt S&E at bedside --Plan discussed with attending Dr. Levi --Chart, labs, vitals reviewed: afebrile, wbc 12.4 --ESR elevated at 89 --wound cx (gram - sophia) --IV abx per ID (Dr. Higginbotham) c/wvanc and zosyn --Right foot x-ray: no evidence of gas, (-) for OM, postoperative changes secondary to degenerative/posttraumatic findings about ankle affecting talus, disal tibia, fibula --Bone scan: (-) for OM --s/p angiogram w/ Dr. Morales today at [facility]. Per Dr. Morales pt is vascularly stabilized for OR --Pt is medically stable for OR per Dr. Herndon --OR tomorrow morning Saturday 02/24 w/ Dr. Levi for right hallux debridement --All q's and concerns addressed with patient --Wound flushed with sterile saline, W2D gauze applied, kerlix --NPO after midnight --Podiatry will continue to follow while in house.
[2017-02-23] MEDS ORDERED: Oxycodone/Acetaminophen 5/325 mg Tab PO STA (20:24)
[2017-02-23] MEDS ORDERED: Oxycodone/Acetaminophen 5/325 mg Tab PO SCH (21:00)
[2017-02-24] MEDS: Piperacillin/Tazobact 3.375 GM in Sodium Chloride 0.9% 100 ML IVPB SCH ×3 (00:23→18:07)
[2017-02-24] MEDS: Oxycodone/Acetaminophen 5/325 mg Tab PO PRN ×3 (00:31→18:42)
--- NOTE | 2017-02-24 06:18 | CP.PCM.PN ---
Subjective - Date & Time of Evaluation Date of Evaluation: 02/24/17 Time of Evaluation: 06:30 - Subjective Subjective: PODIATRY PROGRESS NOTE FOR DR. LEVI: 66 yo male patient seen at bedside today for f/u of right hallux ulceration. Pt seen resting in bed at time of visit. Pt is s/p angiogram w/ Dr. Morales at [facility] yesterday. Pt denies any pain or discomfort to the foot at this time. Did have lower back pain last night, pain medications did help and allowed him to sleep. Denies f/n/v/c/sob/cp at this time. NPO confirmed since midnight last night. Is ready for OR this AM. Objective - Vital Signs/Intake and Output Vital Signs (last 24 hours): Temp Pulse Resp BP Pulse Ox 98.2 F 70 20 147/86 99 02/23/17 20:09 02/23/17 20:09 02/23/17 20:09 02/23/17 20:09 02/23/17 20:09 - Medications Medications: Current Medications Clopidogrel Bisulfate (Plavix) 75 mg PO DAILY [facility] Piperacillin Sod/Tazobactam (Sod 3.375 gm/ Sodium Chloride) 100 mls @ 100 mls/ hr IVPB Q8 [facility] Last Admin: 02/24/17 00:23 Dose: 100 mls/hr Vancomycin HCl 1 gm/ Sodium (Chloride) 250 mls @ 250 mls/hr IVPB Q12@1700,0500 [facility] Last Admin: 02/24/17 04:24 Dose: 250 mls/hr Ketorolac Tromethamine (Toradol) 15 mg IVP Q6 PRN PRN Reason: Pain, severe (8-10) Losartan Potassium (Cozaar) 100 mg PO DAILY [facility] Last Admin: 02/23/17 08:17 Dose: 100 mg Oxycodone/Acetaminophen (Percocet 5/325 Mg Tab) 1 tab PO Q4 PRN PRN Reason: Pain, moderate (4-7) Stop: 02/26/17 21:01 Last Admin: 02/24/17 00:31 Dose: 1 tab - Labs Labs: 02/22/17 11:04 PT 9.7 SECONDS (9.6-11.2) 02/21/17 16:40 INR 0.93 (0.92-1.08) 02/21/17 16:40 APTT 30.4 SECONDS (23.3-32.5) 02/21/17 16:40 - Constitutional Appears: Non-toxic, No Acute Distress - Extremities Exam Extremities Exam: absent: Calf Tenderness Additional comments: RLE exam: Dressing appears c/d/i to the right foot, cft <3 sec to digits x 5 - Neurological Exam Neurological Exam: Alert, Awake, Oriented x3 - Psychiatric Exam Psychiatric exam: Normal Affect, Normal Mood Assessment and Plan - Assessment and Plan (Free Text) Assessment: 66 yo male patient w/ pmh of stroke, HTN, lumbar radiculopathy seen at bedside today for f/u right hallux ulceration & cellulitis Plan: --Pt S&E at bedside --Plan discussed with attending Dr. Levi --Chart, labs, vitals reviewed: afebrile, wbc 12.4 --ESR elevated at 89 --wound cx (gram - sophia) --IV abx per ID (Dr. Higginbotham) c/w vanc and zosyn --Right foot x-ray: no evidence of gas, (-) for OM, postoperative changes secondary to degenerative/posttraumatic findings about ankle affecting talus, disal tibia, fibula --Bone scan: (-) for OM --s/p angiogram w/ Dr. Morales [facility] Per Dr. Morales pt is vascularly stabilized for OR --Pt is medically stable for OR per Dr. Herndon --Pt for OR for debridement right hallux ulcer today. --NPO status confirmed --Medical clearance in chart --All questions and concerns address with patient. --Podiatry will continue to follow
[2017-02-24 06:52] LABS: BASO # 0.1 K/uL (0.0-0.2); BASO % 1.2 % (0.0-2.0); EOS # 0.2 K/uL (0.0-0.7); EOS % 1.6 % (0.0-4.0); HEMATOCRIT 34.6 % (35.0-51.0); LYMPH # 2.4 K/uL (1.0-4.3); LYMPH % 20.7 % (20.0-40.0); MEAN CELL VOLUME 97.6 fl (80.0-94.0); MEAN CORPUSCULAR HEMOGLOBIN 32.8 pg (27.0-31.0); MEAN CORPUSCULAR HGB CONC 33.6 g/dL (33.0-37.0); MONO # 1.3 K/uL (0.0-0.8); MONO % 10.6 % (0.0-10.0); NEUT # 7.8 K/uL (1.8-7.0); NEUT % 65.9 % (50.0-75.0); RED CELL DISTRIBUTION WIDTH 14.7 % (11.5-14.5); WHITE BLOOD COUNT 11.8 K/uL (4.8-10.8)
[2017-02-24] MEDS ORDERED: Bupivacaine 0.5% 50 ML IJ ONE (06:57)
[2017-02-24] MEDS ORDERED: Lidocaine 1% Inj (20ml) IJ ONE (06:57)
[2017-02-24] MEDS ORDERED: Midazolam 2 MG/2 ML VIAL ONE ×2 (07:13→07:45)
[2017-02-24] MEDS ORDERED: Propofol 10 mg/ml Inj (20 ML) ONE (07:13)
[2017-02-24 07:14] LABS: BLOOD UREA NITROGEN 14 mg/dl (9-20); CALCIUM 9.3 mg/dL (8.4-10.2); CARBON DIOXIDE 25 mmol/L (22-30); CHLORIDE 104 mmol/L (98-107); GFR AFRICAN-AMERICAN > 60; GLUCOSE,RANDOM 95 mg/dL (75-110); POTASSIUM 4.4 MMOL/L (3.6-5.0); SODIUM 138 mmol/l (132-148)
[2017-02-24 07:22] LABS: PARTIAL THROMBOPLASTIN TIME 29.7 SECONDS (23.3-32.5)
[2017-02-24] MEDS ORDERED: Lidocaine 1% Inj (20ml) ONE ×2 (07:26→15:12)
[2017-02-24] MEDS ORDERED: Bupivacaine 0.5% Inj(30mL) ONE (07:27)
[2017-02-24] MEDS ORDERED: Lactated Ringer's 1,000 ML IV ONE (07:45)
--- NOTE | 2017-02-24 08:39 | CP.PCM.PN ---
Subjective - Date & Time of Evaluation Date of Evaluation: 02/24/17 Time of Evaluation: 06:00 - Subjective Subjective: 66M seen and examined at bedside with attending. Interval Events: Angio RLE with successful removal of plaques and improved flow. Patient started on Plavix. Went to OR for debridement of Rt plantar hallux wound. Pt is doing well without significant complaints. He denies SOB, chest pain, and foot pain is well-controlled. He is tolerating PO. Objective - Vital Signs/Intake and Output Vital Signs (last 24 hours): Temp Pulse Resp BP Pulse Ox 36.8 C 70 20 147/86 99 02/23/17 20:09 02/23/17 20:09 02/23/17 20:09 02/23/17 20:09 02/23/17 20:09 Intake and Output: 02/24/17 02/24/17 06:59 18:59 Intake Total 300 Balance 300 - Medications Medications: Current Medications Clopidogrel Bisulfate (Plavix) 75 mg PO DAILY [facility] Piperacillin Sod/Tazobactam (Sod 3.375 gm/ Sodium Chloride) 100 mls @ 100 mls/ hr IVPB Q8 [facility] Last Admin: 02/24/17 00:23 Dose: 100 mls/hr Vancomycin HCl 1 gm/ Sodium (Chloride) 250 mls @ 250 mls/hr IVPB Q12@1700,0500 [facility] Last Admin: 02/24/17 04:24 Dose: 250 mls/hr Ketorolac Tromethamine (Toradol) 15 mg IVP Q6 PRN PRN Reason: Pain, severe (8-10) Losartan Potassium (Cozaar) 100 mg PO DAILY [facility] Last Admin: 02/23/17 08:17 Dose: 100 mg Oxycodone/Acetaminophen (Percocet 5/325 Mg Tab) 1 tab PO Q4 PRN PRN Reason: Pain, moderate (4-7) Stop: 02/26/17 21:01 Last Admin: 02/24/17 00:31 Dose: 1 tab - Labs Labs: 02/24/17 06:44 02/24/17 06:44 PT 10.0 SECONDS (9.6-11.2) 02/24/17 06:44 INR 0.96 (0.92-1.08) 02/24/17 06:44 APTT 29.7 SECONDS (23.3-32.5) 02/24/17 06:44 - Constitutional Appears: Well, Non-toxic, No Acute Distress - Head Exam Head Exam: ATRAUMATIC, NORMAL INSPECTION - Eye Exam Eye Exam: EOMI, Normal appearance, PERRL - ENT Exam ENT Exam: Mucous Membranes Moist, Normal Exam - Neck Exam Neck Exam: Full ROM, Normal Inspection - Respiratory Exam Respiratory Exam: Clear to Ausculation Bilateral, NORMAL BREATHING PATTERN. absent: Rales, Wheezes - Cardiovascular Exam Cardiovascular Exam: REGULAR RHYTHM. absent: JVD - GI/Abdominal Exam GI & Abdominal Exam: Soft, Normal Bowel Sounds. absent: Tenderness - Extremities Exam Extremities Exam: Normal Capillary Refill. absent: Pedal Edema Additional comments: RIGHT foot with maciel wrap and drsg in place, toes warm, pink, good cap refill - Neurological Exam Neurological Exam: Alert, Awake, Oriented x3 - Psychiatric Exam Psychiatric exam: Normal Affect, Normal Mood - Skin Skin Exam: Normal Color, Warm Assessment and Plan (1) Cellulitis of foot Assessment & Plan: POD#0 s/p RIGHT plantar hallux debridement. Wound culture growing pseudomonas and bone scan negative, so Vancomycin was discontinued after discussing with ID. Patient still needs to be on IV antibiotics, so PICC was placed today and the plan is for him to be discharged to home on Monday with 3 days remaining of IV abx that he will get through Same Day Surgery. Plan discussed with ID/ Podiatry and most importantly the patient who did not want to go to [facility] for abx. - Management as per Podiatry - ID Consult (Dr Higginbotham) appreciated - Zosyn 3.375, IV, Q8H - Toradol/Percocet for Pain control Status: Acute (2) DVT prophylaxis Assessment & Plan: Patient is high risk. Currently receiving Toradol IV PRN for pain, so decision made to use Heparin instead of Lovenox for the interim until Toradol no longer being used for pain control. Heparin 5000U, SC, Q8H Status: Acute (3) PAD (peripheral artery disease) Assessment & Plan: PPD#1 s/p angiogram of RLE with improved inflow. - Endovascular/Cardiology Consult (Dr Morales) appreciated - Plavix 75mg, PO, Daily Status: Chronic (4) Hypertension Assessment & Plan: Chronic, stable - Losartan 100mg, PO, Daily Status: Chronic (5) History of CVA (cerebrovascular accident) without residual deficits Assessment & Plan: chronic, stable - Aspirin 81mg, PO, Daily Status: Chronic
[2017-02-24] MEDS ORDERED: Lactated Ringer's 1,000 ML IV SCH (08:45)
--- NOTE | 2017-02-24 08:45 | PCM.SURG1 ---
Surgeon's Initial Post Op Note - Surgeon's Notes Surgeon: Dr. Vela Fur Repairer: Dr. Glover, PGY-1 Type of Anesthesia: IV Sedation, Local Anesthesia Administered By: Dr. Alejandra Pre-Operative Diagnosis: right foot plantar hallux ulceration Operative Findings: see operative report: I: 18 cc 1% lidocaine plain + 0.5% marcaine plain 1:1 mix. M: 1/2 iodoform packing Post-Operative Diagnosis: same Operation Performed: right foot plantar hallux ulcer debridement Specimen/Specimens Removed: right hallux wound culture Estimated Blood Loss: EBL {In ML}: 2 Blood Products Given: N/A Drains Used: No Drains Post-Op Condition: Good Date of Surgery/Procedure: 02/24/17 Time of Surgery/Procedure: 07:45
[2017-02-24] MEDS ORDERED: Enoxaparin 40 mg Syringe SC SCH (12:00)
--- NOTE | 2017-02-24 13:54 | OP ---
PROCEDURE DATE: 02/24/2017 SURGEON: Robin Vela DPM FIRE PROTECTION SPECIALIST: Sara Glover DPM, PGY-1 ANESTHESIOLOGIST: Dr. Alejandra ANESTHESIA: IV sedation with local. PREOPERATIVE DIAGNOSIS: Right foot plantar hallux ulceration. POSTOPERATIVE DIAGNOSIS: Right foot plantar hallux ulceration. PROCEDURE PERFORMED: Right foot plantar hallux ulceration wound debridement. INDICATIONS: The patient is a 66-year-old male with the above diagnosis. The patient has exhausted all conservative treatment at this time and now requires surgical intervention. The patient signed the consent after careful explanation of risks, benefits, complications and alternatives for surgical procedure. No guarantees were given nor implied. N.p.o. status was confirmed prior to taking the patient to the OR. PREPARATION: The patient was brought into the operating room and placed on the operating room table in a supine position. Timeout was performed for identification of the correct patient and procedure. After induction of IV sedation, a local block consisting of 18 mL of a 1:1 mixture of 1% lidocaine plain and 0.5% Marcaine plain was given. The right lower extremity was then prepped and draped in a normal sterile manner and the procedure began. PROCEDURE: Right foot plantar hallux ulcer wound debridement with Misonix. Attention was directed to the plantar aspect of the right hallux, where an ulcer was located. The ulcer measured approximately 3 cm x 2 cm x 0.4 cm and tunneled 7 cm at the 6 o'clock position. Using a Misonix curette handle, machine setting 5, the ulcer was excisionally debrided of all fibrotic and nonviable tissue until fresh and healthy bleeding granular tissue appeared. Two mL of purulent drainage was expressed from the ulcer. The site was cultured and the specimen was sent for culture and sensitivity. The site was then irrigated with copious amounts of normal sterile saline utilizing a Simpulse. The right hallux was then packed with half-inch iodoform packing, dressed with Xeroform, dry sterile dressing and a light MARIA EUGENIA wrap. POSTOPERATIVE CONDITION: The patient tolerated the anesthesia and procedure well and was escorted to the recovery room with vital signs stable and neurovascular status intact to the right lower extremity. The patient is to be heel weightbearing to the right lower extremity. The patient will be continued to follow while in-house. SARA AINSELY HOFFMAN Robin Vela DPM cc: [id number] TT: 02/24/2017 13:53:01 [facility] # [id number] en EILEEN
--- NOTE | 2017-02-24 14:42 | CP.PCM.PN ---
Subjective - Date & Time of Evaluation Date of Evaluation: 02/24/17 Time of Evaluation: 10:00 - Subjective Subjective: S/P DEBRIDEMENT BONE SCAN NEG CONT IV ANTIBIOTICS Objective - Vital Signs/Intake and Output Vital Signs (last 24 hours): Temp Pulse Resp BP Pulse Ox 98.2 F 66 20 155/78 H 100 02/24/17 09:30 02/24/17 09:48 02/24/17 09:30 02/24/17 09:48 02/24/17 09:25 Intake and Output: 02/24/17 02/24/17 06:59 18:59 Intake Total 500 Balance 500 - Medications Medications: Current Medications Clopidogrel Bisulfate (Plavix) 75 mg PO DAILY [facility] Last Admin: 02/24/17 09:47 Dose: 75 mg Piperacillin Sod/Tazobactam (Sod 3.375 gm/ Sodium Chloride) 100 mls @ 100 mls/ hr IVPB Q8 [facility] Last Admin: 02/24/17 09:49 Dose: 100 mls/hr Vancomycin HCl 1 gm/ Sodium (Chloride) 250 mls @ 250 mls/hr IVPB Q12@1700,0500 [facility] Last Admin: 02/24/17 04:24 Dose: 250 mls/hr Lactated Ringer's (Lactated Ringer's) 1,000 mls @ 125 mls/hr IV .Q8H [facility] Last Admin: 02/24/17 09:49 Dose: 125 mls/hr Ketorolac Tromethamine (Toradol) 15 mg IVP Q6 PRN PRN Reason: Pain, severe (8-10) Losartan Potassium (Cozaar) 100 mg PO DAILY [facility] Last Admin: 02/24/17 09:48 Dose: 100 mg Oxycodone/Acetaminophen (Percocet 5/325 Mg Tab) 1 tab PO Q4 PRN PRN Reason: Pain, moderate (4-7) Stop: 02/26/17 21:01 Last Admin: 02/24/17 11:57 Dose: 1 tab - Labs Labs: 02/24/17 06:44 02/24/17 06:44 PT 10.0 SECONDS (9.6-11.2) 02/24/17 06:44 INR 0.96 (0.92-1.08) 02/24/17 06:44 APTT 29.7 SECONDS (23.3-32.5) 02/24/17 06:44 - Constitutional Appears: Non-toxic, Chronically Ill - Head Exam Head Exam: NORMOCEPHALIC - Eye Exam Eye Exam: PERRL. absent: Scleral icterus - ENT Exam ENT Exam: Mucous Membranes Dry - Neck Exam Neck Exam: absent: Lymphadenopathy - Respiratory Exam Respiratory Exam: Decreased Breath Sounds, Clear to Ausculation Bilateral - Cardiovascular Exam Cardiovascular Exam: REGULAR RHYTHM, +S1, +S2 - GI/Abdominal Exam GI & Abdominal Exam: Distended, Soft. absent: Tenderness - Rectal Exam Rectal Exam: Deferred - Exam Exam: NORMAL INSPECTION - Extremities Exam Extremities Exam: Pedal Edema, Tenderness. absent: Calf Tenderness, Normal Inspection - Back Exam Back Exam: absent: CVA tenderness (L), CVA tenderness (R) - Neurological Exam Neurological Exam: Alert, Awake, Oriented x3 - Psychiatric Exam Psychiatric exam: Normal Mood - Skin Skin Exam: Dry Assessment and Plan (1) Cellulitis of foot Status: Acute (2) Hypertension Status: Chronic (3) Infected wound Status: Acute - Assessment and Plan (Free Text) Assessment: INFECTED ULCER RIGHT FOOT S/P DEBRIDEMENT CONT IV THEN PO ANTIBIOTICS WITH WOUND CARE
--- NOTE | 2017-02-24 15:30 | PCM.SURG1 ---
Surgeon's Initial Post Op Note - Surgeon's Notes Surgeon: Escobar Shanks MD Drafter Commercial: NONE Type of Anesthesia: Local Pre-Operative Diagnosis: Foot infection Operative Findings: US showed patent right basilic vein. Post-Operative Diagnosis: Foot infection Operation Performed: Right brachial vein single lumen picc placement, 37 cm. Tip in SVC. Specimen/Specimens Removed: none Estimated Blood Loss: EBL {In ML}: 2 Blood Products Given: N/A Drains Used: No Drains Post-Op Condition: Fair Date of Surgery/Procedure: 02/24/17 Time of Surgery/Procedure: 15:25
--- NOTE | 2017-02-24 15:50 | VASCULAR ---
PROCEDURE: Date of procedure: 02/24/2017 Procedure: 1. Placement of a right arm PICC with ultrasound and fluoroscopic guidance, CPT 40895 2. PICC tip confirmation with spot radiograph and is in the superior vena cava Medications: 1 percent lidocaine Total Fluoro time: 7.8 seconds Radiation: [id number] EBL: 2 cc HISTORY: Foot infection requiring long-term IV antibiotics TECHNIQUE: Following informed consent and procedure time-out, the patient was placed supine on the interventional table and the right arm prepped and draped in the usual sterile fashion. Ultrasound showed a patent and compressible right brachial vein. After the skin was anesthetized with lidocaine, the basilic vein was accessed with micro micropuncture technique using ultrasound guidance. A guidewire was then advanced under fluoroscopic guidance into the superior vena cava. An image documenting ultrasound guidance for vascular access was permanently saved. The length of the single-lumen 4 [place] PICC was trimmed to 37 centimeters and advanced through a peel-away sheath. The PICC was position with tip of PICC confirm a spot radiograph the superior vena cava. The PICC was secured to the patient's skin. The PICC was flushed. A biopatch and sterile dressing was applied. IMPRESSION: Placement of a single-lumen 4 [place] PICC trimmed to 37 centimeters via right brachial vein. The tip of the PICC is confirmed with spot radiograph and is in the superior vena cava.
[2017-02-25] MEDS: Oxycodone/Acetaminophen 5/325 mg Tab PO PRN ×3 (00:14→16:37)
[2017-02-25] MEDS: Piperacillin/Tazobact 3.375 GM in Sodium Chloride 0.9% 100 ML IVPB SCH ×3 (00:47→17:00)
[2017-02-25 07:30] LABS: HEMATOCRIT 32.3 % (35.0-51.0); MEAN CELL VOLUME 97.1 fl (80.0-94.0); MEAN CORPUSCULAR HEMOGLOBIN 32.7 pg (27.0-31.0); MEAN CORPUSCULAR HGB CONC 33.7 g/dL (33.0-37.0); RED CELL DISTRIBUTION WIDTH 14.7 % (11.5-14.5); WHITE BLOOD COUNT 11.1 K/uL (4.8-10.8)
[2017-02-25 07:51] LABS: BLOOD UREA NITROGEN 14 mg/dl (9-20); CALCIUM 9.3 mg/dL (8.4-10.2); CARBON DIOXIDE 27 mmol/L (22-30); CHLORIDE 101 mmol/L (98-107); GFR AFRICAN-AMERICAN > 60; GLUCOSE,RANDOM 92 mg/dL (75-110); POTASSIUM 4.1 MMOL/L (3.6-5.0); SODIUM 138 mmol/l (132-148)
--- NOTE | 2017-02-25 07:55 | PN ---
DATE: 02/25/2017 The patient seen and examined. Interim events noted. Consults noted, appreciated. Infectious disea se consult and intervention and evaluation noted and appreciated. The patient is status post PICC li ne. The patient feels better. No chest pain, no shortness of breath, no complications from procedur es. PHYSICAL EXAMINATION: GENERAL: The patient is in no acute distress. VITAL SIGNS: Stable. HEART: S1, S2 normal, regular. LUNGS: Good bilateral air entry. ABDOMEN: Soft, nontender. EXTREMITIES: The patient has right upper extremity PICC line and the right lower extremity is in chayito gical dressing without any sign of distal neurovascular compromise. No ____. No calf swelling, no t enderness, no acute ischemia. CENTRAL NERVOUS SYSTEM: Essentially unchanged. DIAGNOSTIC DATA: Available diagnostic data reviewed. Overall, patient's general medical condition is stable. The patient the need long-term antibiotics. PLAN: As ordered. Case and plan discussed with patient. Juancho Dillard MD cc: [id number] TT: 02/25/2017 07:54:23 Confirmation # [id number] Dictation # [id number] tn
--- NOTE | 2017-02-25 13:44 | CP.PCM.PN ---
Subjective - Date & Time of Evaluation Date of Evaluation: 02/25/17 Time of Evaluation: 11:30 - Subjective Subjective: PODIATRY PROGRESS NOTE FOR DR. HINTON: 66 yo male patient seen at bedside POD #1 soft tissue debridement of right hallux ulceration. Pt denies any acute events overnight. Denies f/n/v/c/sob/cp. Tolerating diet. Does complain of persistent lower back pain but is relieved w/ pain meds. Also complains of some throbbing pain to the right hallux today. Says he has only walked to the bathroom. Denies any other problems at this time. Objective - Vital Signs/Intake and Output Vital Signs (last 24 hours): Temp Pulse Resp BP Pulse Ox 97.9 F 80 20 148/80 100 02/25/17 08:40 02/25/17 09:25 02/25/17 08:40 02/25/17 09:25 02/25/17 08:40 - Medications Medications: Current Medications Clopidogrel Bisulfate (Plavix) 75 mg PO DAILY [facility] Last Admin: 02/25/17 09:23 Dose: 75 mg Docusate Sodium (Colace) 100 mg PO DAILY [facility] Last Admin: 02/25/17 10:47 Dose: 100 mg Heparin Sodium (Porcine) (Heparin) 5,000 units SC Q8 [facility] PRN Reason: Protocol Last Admin: 02/25/17 09:22 Dose: 5,000 units Piperacillin Sod/Tazobactam (Sod 3.375 gm/ Sodium Chloride) 100 mls @ 100 mls/ hr IVPB Q8 [facility] Last Admin: 02/25/17 09:22 Dose: 100 mls/hr Vancomycin HCl 1 gm/ Sodium (Chloride) 250 mls @ 166.667 mls/hr IVPB Q12@1800, 0600 [facility] Last Admin: 02/25/17 05:51 Dose: 166.667 mls/hr Ketorolac Tromethamine (Toradol) 10 mg PO Q6 PRN PRN Reason: Pain, moderate (4-7) Lactulose (Enulose) 10 gm PO DAILY PRN PRN Reason: Constipation Losartan Potassium (Cozaar) 100 mg PO DAILY [facility] Last Admin: 02/25/17 09:25 Dose: 100 mg Oxycodone/Acetaminophen (Percocet 5/325 Mg Tab) 1 tab PO Q4 PRN PRN Reason: Pain, severe (8-10) Stop: 02/26/17 21:01 Last Admin: 02/25/17 05:59 Dose: 1 tab - Labs Labs: 02/25/17 06:30 02/25/17 06:30 PT 10.0 SECONDS (9.6-11.2) 02/24/17 06:44 INR 0.96 (0.92-1.08) 02/24/17 06:44 APTT 29.7 SECONDS (23.3-32.5) 02/24/17 06:44 - Constitutional Appears: Well, Non-toxic, No Acute Distress - Extremities Exam Extremities Exam: absent: Calf Tenderness Additional comments: RLE exam: Dressing appears c/d/i with no strikethrough noted VASC- DP/PT pulses fully palpable, skin temp runs warm to warm (slight increased callor to dorsal-distal foot at hallux), no pedal edema noted NEURO- gross sensation is intact DERM- ulceration noted to plantar aspect hallux IPJ appears 100% granular to wound bed (measures 3.0x1.0x0.4cm), no purulence on compression, slight serous drainage is noted, exposed tendon seen, no malodor, no fluctuance, slight tracking noted plantar proximally ORTHO- tendernss to wound today - Neurological Exam Neurological Exam: Alert, Awake, Oriented x3 - Psychiatric Exam Psychiatric exam: Normal Affect, Normal Mood Assessment and Plan - Assessment and Plan (Free Text) Assessment: 66 yo male patient w/ pmh of stroke, HTN, lumbar radiculopathy seen at bedside POD #1 soft tissue debridement of right hallux w/ resolving cellulitis Plan: -Pt S&E at bedside -Discussed w/ attending Dr. Hinton -Chart, labs, vitals reviewed: afebrile, wbc 11.1 -Wound cx: + pseudomonas -C/w vanc and zosyn IV per ID -wound flushed with sterile saline, repacked w/ 1/4 inch packing, xeroform, DSD -pt may wb to the right heel w/ surgical shoe -encouraged ambulation -Stable per podiatry -Per primary, pt is for D/C home Monday and will require 3 additional days of IV abx through same day surgery via PICC -Will continue to follow
[2017-02-25] MEDS: Lactulose 10 gm/15 ml Syrup PO PRN (16:33)
[2017-02-26] MEDS: Piperacillin/Tazobact 3.375 GM in Sodium Chloride 0.9% 100 ML IVPB SCH ×3 (00:15→16:07)
[2017-02-26] MEDS: Oxycodone/Acetaminophen 5/325 mg Tab PO PRN ×4 (00:25→19:57)
[2017-02-26 06:18] LABS: HEMATOCRIT 31.9 % (35.0-51.0); MEAN CELL VOLUME 97.7 fl (80.0-94.0); MEAN CORPUSCULAR HEMOGLOBIN 32.7 pg (27.0-31.0); MEAN CORPUSCULAR HGB CONC 33.5 g/dL (33.0-37.0); RED CELL DISTRIBUTION WIDTH 14.2 % (11.5-14.5); WHITE BLOOD COUNT 12.1 K/uL (4.8-10.8)
[2017-02-26 06:29] LABS: ALKALINE PHOSPHATASE 56 U/L (38-126); ALT/SGPT 25 U/L (21-72); AST/SGOT 32 U/L (17-59); BILIRUBIN,TOTAL 0.3 mg/dl (0.2-1.3); BLOOD UREA NITROGEN 14 mg/dl (9-20); CALCIUM 9.4 mg/dL (8.4-10.2); CARBON DIOXIDE 26 mmol/L (22-30); CHLORIDE 102 mmol/L (98-107); GFR AFRICAN-AMERICAN > 60; GLUCOSE,RANDOM 89 mg/dL (75-110); POTASSIUM 4.2 MMOL/L (3.6-5.0); SODIUM 137 mmol/l (132-148); TOTAL PROTEIN 6.4 G/DL (6.3-8.2)
--- NOTE | 2017-02-26 07:50 | CP.PCM.PN ---
Subjective - Date & Time of Evaluation Date of Evaluation: 02/26/17 Time of Evaluation: 07:50 - Subjective Subjective: PODIATRY PROGRESS NOTE FOR DR. HINTON: 66 yo male patient seen at bedside POD #2 soft tissue debridement of right hallux ulceration. Pt denies any acute events overnight. Denies f/n/v/c/sob/cp. Tolerating diet. Still has lower back pain but says pain meds help. Says right foot is feeling much better, less throbbing to the hallux today. Get OOB to bathroom with heel weightbearing and walker with nurse supervision. Denies any other problems at this time. Objective - Vital Signs/Intake and Output Vital Signs (last 24 hours): Temp Pulse Resp BP Pulse Ox 97.5 F L 55 L 20 117/65 97 02/25/17 20:59 02/25/17 20:59 02/25/17 20:59 02/25/17 20:59 02/25/17 20:59 - Medications Medications: Current Medications Clopidogrel Bisulfate (Plavix) 75 mg PO DAILY [facility] Last Admin: 02/25/17 09:23 Dose: 75 mg Docusate Sodium (Colace) 100 mg PO DAILY [facility] Last Admin: 02/25/17 10:47 Dose: 100 mg Heparin Sodium (Porcine) (Heparin) 5,000 units SC Q8 [facility] PRN Reason: Protocol Last Admin: 02/26/17 00:16 Dose: 5,000 units Piperacillin Sod/Tazobactam (Sod 3.375 gm/ Sodium Chloride) 100 mls @ 100 mls/ hr IVPB Q8 [facility] Last Admin: 02/26/17 00:15 Dose: 100 mls/hr Vancomycin HCl 1 gm/ Sodium (Chloride) 250 mls @ 166.667 mls/hr IVPB Q12@1800, 0600 [facility] Last Admin: 02/26/17 05:49 Dose: 166.667 mls/hr Ketorolac Tromethamine (Toradol) 10 mg PO Q6 PRN PRN Reason: Pain, moderate (4-7) Lactulose (Enulose) 10 gm PO DAILY PRN PRN Reason: Constipation Last Admin: 02/25/17 16:33 Dose: 10 gm Losartan Potassium (Cozaar) 100 mg PO DAILY [facility] Last Admin: 02/25/17 09:25 Dose: 100 mg Oxycodone/Acetaminophen (Percocet 5/325 Mg Tab) 1 tab PO Q4 PRN PRN Reason: Pain, severe (8-10) Stop: 02/26/17 21:01 Last Admin: 02/26/17 05:53 Dose: 1 tab - Labs Labs: 02/26/17 06:05 02/26/17 06:05 PT 10.0 SECONDS (9.6-11.2) 02/24/17 06:44 INR 0.96 (0.92-1.08) 02/24/17 06:44 APTT 29.7 SECONDS (23.3-32.5) 02/24/17 06:44 - Constitutional Appears: Well, Non-toxic, No Acute Distress - Extremities Exam Extremities Exam: absent: Calf Tenderness Additional comments: RLE exam: Dressing appears c/d/i with no strikethrough noted VASC- DP/PT pulses fully palpable, skin temp runs warm to cool, no pedal edema noted NEURO- gross sensation is intact DERM- ulceration noted to plantar aspect hallux IPJ appears 100% granular to wound bed (measures 3.0x1.0x0.4cm), no purulence on compression, slight serous drainage is noted, exposed tendon seen, no malodor, no fluctuance, slight tracking noted plantar proximally ORTHO- slight tenderness to wound bed - Neurological Exam Neurological Exam: Alert, Awake, Oriented x3 - Psychiatric Exam Psychiatric exam: Normal Affect, Normal Mood Assessment and Plan - Assessment and Plan (Free Text) Assessment: 66 yo male patient w/ pmh of stroke, HTN, lumbar radiculopathy seen at bedside POD #2 soft tissue debridement of right hallux w/ resolving cellulitis Plan: -Pt S&E at bedside -Discussed w/ attending Dr. Hinton -Chart, labs, vitals reviewed: afebrile, wbc 12.1 today -Wound cx (02/22): + pseudomonas -Intra-op wound cx (02/24): staph aureus light growth -C/w vanc and zosyn IV per ID -wound flushed with sterile saline, repacked w/ 1/4 inch packing, DSD -pt may wb to the right heel w/ surgical shoe -encouraged ambulation. Per PT patient to use walker with supervision as he is a fall risk -Stable per podiatry -Per primary, pt is for D/C home Monday and will require 3 additional days of IV abx through same day surgery via PICC -Will continue to follow
[2017-02-26] MEDS: Lactulose 10 gm/15 ml Syrup PO PRN (08:43)
--- NOTE | 2017-02-26 09:45 | PN ---
DATE: 02/26/2017 The patient seen and examined. Interim events noted. The patient remains on medical floor. The pat ient feels okay. No specific complaint. No chest pain, no shortness of breath. PHYSICAL EXAMINATION: GENERAL: The patient is in no acute distress. VITAL SIGNS: Stable. HEART: S1, S2 normal, regular. LUNGS: Good bilateral air exchange. ABDOMEN: Soft, nontender. EXTREMITIES: Right lower extremity is under surgical dressing. PICC line without any complica tions. CENTRAL NERVOUS SYSTEM: Essentially unchanged. DIAGNOSTIC DATA: Available reviewed. Overall, patient's general medical condition is stable. PLAN: As ordered. Juancho Dillard MD cc: [id number] TT: 02/26/2017 09:45:12 Confirmation # [id number] Dictation # [id number]
--- NOTE | 2017-02-26 13:29 | CP.PCM.PN ---
Subjective - Date & Time of Evaluation Date of Evaluation: 02/26/17 Time of Evaluation: 08:00 - Subjective Subjective: NAD / NO NEW COMPLAINTS S/P DEBRIDEMENT FOOT ULCER + MSSA FROM INTRA-OP CULTURES Objective - Vital Signs/Intake and Output Vital Signs (last 24 hours): Temp Pulse Resp BP Pulse Ox 97.8 F 70 18 125/72 99 02/26/17 08:02 02/26/17 08:52 02/26/17 08:02 02/26/17 08:52 02/26/17 08:02 - Medications Medications: Current Medications Clopidogrel Bisulfate (Plavix) 75 mg PO DAILY [facility] Last Admin: 02/26/17 08:49 Dose: 75 mg Docusate Sodium (Colace) 100 mg PO DAILY [facility] Last Admin: 02/26/17 08:43 Dose: 100 mg Heparin Sodium (Porcine) (Heparin) 5,000 units SC Q8 [facility] PRN Reason: Protocol Last Admin: 02/26/17 08:48 Dose: 5,000 units Piperacillin Sod/Tazobactam (Sod 3.375 gm/ Sodium Chloride) 100 mls @ 100 mls/ hr IVPB Q8 [facility] Last Admin: 02/26/17 08:42 Dose: 100 mls/hr Vancomycin HCl 1 gm/ Sodium (Chloride) 250 mls @ 166.667 mls/hr IVPB Q12@1800, 0600 [facility] Last Admin: 02/26/17 05:49 Dose: 166.667 mls/hr Ketorolac Tromethamine (Toradol) 10 mg PO Q6 PRN PRN Reason: Pain, moderate (4-7) Lactulose (Enulose) 10 gm PO DAILY PRN PRN Reason: Constipation Last Admin: 02/26/17 08:43 Dose: 10 gm Losartan Potassium (Cozaar) 100 mg PO DAILY [facility] Last Admin: 02/26/17 08:52 Dose: 100 mg Oxycodone/Acetaminophen (Percocet 5/325 Mg Tab) 1 tab PO Q4 PRN PRN Reason: Pain, severe (8-10) Stop: 02/26/17 21:01 Last Admin: 02/26/17 05:53 Dose: 1 tab - Labs Labs: 02/26/17 06:05 02/26/17 06:05 PT 10.0 SECONDS (9.6-11.2) 02/24/17 06:44 INR 0.96 (0.92-1.08) 02/24/17 06:44 APTT 29.7 SECONDS (23.3-32.5) 02/24/17 06:44 - Constitutional Appears: Non-toxic, Chronically Ill - Head Exam Head Exam: NORMOCEPHALIC - Eye Exam Eye Exam: PERRL. absent: Scleral icterus - ENT Exam ENT Exam: Mucous Membranes Dry - Neck Exam Neck Exam: absent: Lymphadenopathy - Respiratory Exam Respiratory Exam: Decreased Breath Sounds, Clear to Ausculation Bilateral - Cardiovascular Exam Cardiovascular Exam: REGULAR RHYTHM, +S1, +S2 - GI/Abdominal Exam GI & Abdominal Exam: Distended, Soft. absent: Tenderness - Rectal Exam Rectal Exam: Deferred - Exam Exam: NORMAL INSPECTION - Extremities Exam Extremities Exam: absent: Calf Tenderness, Pedal Edema - Back Exam Back Exam: absent: CVA tenderness (L), CVA tenderness (R) - Neurological Exam Neurological Exam: Alert, Awake, Normal Gait, Oriented x3 Assessment and Plan (1) Cellulitis of foot Status: Acute (2) Hypertension Status: Chronic (3) Infected wound Status: Acute - Assessment and Plan (Free Text) Assessment: CONT IV ANTIBIOTICS / WOUND CARE
[2017-02-27] MEDS: Piperacillin/Tazobact 3.375 GM in Sodium Chloride 0.9% 100 ML IVPB SCH ×3 (00:10→16:25)
[2017-02-27] MEDS: Oxycodone/Acetaminophen 5/325 mg Tab PO PRN ×4 (00:30→20:31)
--- NOTE | 2017-02-27 07:28 | CP.PCM.PN ---
Subjective - Date & Time of Evaluation Date of Evaluation: 02/27/17 Time of Evaluation: 07:30 - Subjective Subjective: PODIATRY PROGRESS NOTE FOR DR. HINTON: 66 yo male patient seen at bedside POD #3 soft tissue debridement of right hallux ulceration. Pt denies any acute events overnight. Denies f/n/v/c/sob/cp. Tolerating diet. Still has lower back pain but says pain meds help. Says right foot is feeling much better, less throbbing to the hallux today. Get OOB to bathroom with heel weightbearing and walker with nurse supervision. Denies any other problems at this time. Objective - Vital Signs/Intake and Output Vital Signs (last 24 hours): Temp Pulse Resp BP Pulse Ox 97.4 F L 65 18 135/82 97 02/26/17 21:17 02/26/17 21:17 02/26/17 21:17 02/26/17 21:17 02/26/17 21:17 - Medications Medications: Current Medications Clopidogrel Bisulfate (Plavix) 75 mg PO DAILY [facility] Last Admin: 02/26/17 08:49 Dose: 75 mg Docusate Sodium (Colace) 100 mg PO DAILY [facility] Last Admin: 02/26/17 08:43 Dose: 100 mg Heparin Sodium (Porcine) (Heparin) 5,000 units SC Q8 [facility] PRN Reason: Protocol Last Admin: 02/27/17 00:10 Dose: 5,000 units Piperacillin Sod/Tazobactam (Sod 3.375 gm/ Sodium Chloride) 100 mls @ 100 mls/ hr IVPB Q8 [facility] Last Admin: 02/27/17 00:10 Dose: 100 mls/hr Ketorolac Tromethamine (Toradol) 10 mg PO Q6 PRN PRN Reason: Pain, moderate (4-7) Lactulose (Enulose) 10 gm PO DAILY PRN PRN Reason: Constipation Last Admin: 02/26/17 08:43 Dose: 10 gm Losartan Potassium (Cozaar) 100 mg PO DAILY [facility] Last Admin: 02/26/17 08:52 Dose: 100 mg Oxycodone/Acetaminophen (Percocet 5/325 Mg Tab) 1 tab PO Q4 PRN PRN Reason: Pain, moderate (4-7) Stop: 03/02/17 00:20 Last Admin: 02/27/17 06:29 Dose: 1 tab - Labs Labs: 02/26/17 06:05 02/26/17 06:05 PT 10.0 SECONDS (9.6-11.2) 02/24/17 06:44 INR 0.96 (0.92-1.08) 02/24/17 06:44 APTT 29.7 SECONDS (23.3-32.5) 02/24/17 06:44 - Constitutional Appears: Well, Non-toxic, No Acute Distress - Extremities Exam Extremities Exam: absent: Calf Tenderness Additional comments: RLE exam: Dressing appears c/d/i with no strikethrough noted VASC- DP/PT pulses fully palpable, skin temp runs warm to cool, no pedal edema noted NEURO- gross sensation is intact DERM- ulceration noted to plantar aspect hallux IPJ appears 100% granular to wound bed (measures 3.0x1.0x0.4cm), no purulence on compression, slight serous drainage is noted, exposed tendon seen, no malodor, no fluctuance, slight tracking noted plantar proximally ORTHO- slight tenderness to wound bed - Neurological Exam Neurological Exam: Alert, Awake, Oriented x3 - Psychiatric Exam Psychiatric exam: Normal Affect, Normal Mood Assessment and Plan - Assessment and Plan (Free Text) Assessment: 66 yo male patient w/ pmh of stroke, HTN, lumbar radiculopathy seen at bedside POD #3 soft tissue debridement of right hallux w/ resolved cellulitis Plan: -Pt S&E at bedside -Discussed w/ attending Dr. Hinton -Chart, labs, vitals reviewed: afebrile, wbc 12.1 -Wound cx (02/22): + pseudomonas -Intra-op wound cx (02/24): staph aureus light growth -C/w vanc and zosyn IV per ID -wound flushed with sterile saline, dressed w/ DSD -pt may wb to the right heel w/ surgical shoe -encouraged ambulation. Per PT patient to use walker with supervision as he is a fall risk -Stable per podiatry -For potential d/c home today. f/u ID recommendations. Will require 3 additional days of IV abx through same day surgery via PICC -Will continue to follow
--- NOTE | 2017-02-27 10:54 | CP.PCM.PN ---
Subjective - Date & Time of Evaluation Date of Evaluation: 02/23/17 Time of Evaluation: 09:30 - Subjective Subjective: Patient was doing well Has no chest pain or SOB Afebrile Has minimal pain on the foot. Objective - Vital Signs/Intake and Output Vital Signs (last 24 hours): Temp Pulse Resp BP Pulse Ox 97.7 F 84 18 129/74 99 02/27/17 07:36 02/27/17 10:20 02/27/17 07:36 02/27/17 10:20 02/27/17 07:36 - Medications Medications: Current Medications Clopidogrel Bisulfate (Plavix) 75 mg PO DAILY [facility] Last Admin: 02/27/17 10:19 Dose: 75 mg Docusate Sodium (Colace) 100 mg PO DAILY [facility] Last Admin: 02/27/17 10:19 Dose: 100 mg Heparin Sodium (Porcine) (Heparin) 5,000 units SC Q8 [facility] PRN Reason: Protocol Last Admin: 02/27/17 10:24 Dose: 5,000 units Piperacillin Sod/Tazobactam (Sod 3.375 gm/ Sodium Chloride) 100 mls @ 100 mls/ hr IVPB Q8 [facility] Last Admin: 02/27/17 10:22 Dose: 100 mls/hr Ketorolac Tromethamine (Toradol) 10 mg PO Q6 PRN PRN Reason: Pain, moderate (4-7) Lactulose (Enulose) 10 gm PO DAILY PRN PRN Reason: Constipation Last Admin: 02/26/17 08:43 Dose: 10 gm Losartan Potassium (Cozaar) 100 mg PO DAILY [facility] Last Admin: 02/27/17 10:20 Dose: 100 mg Oxycodone/Acetaminophen (Percocet 5/325 Mg Tab) 1 tab PO Q4 PRN PRN Reason: Pain, moderate (4-7) Stop: 03/02/17 00:20 Last Admin: 02/27/17 06:29 Dose: 1 tab - Labs Labs: 02/26/17 06:05 02/26/17 06:05 PT 10.0 SECONDS (9.6-11.2) 02/24/17 06:44 INR 0.96 (0.92-1.08) 02/24/17 06:44 APTT 29.7 SECONDS (23.3-32.5) 04/21/17 06:44 - Head Exam Head Exam: NORMAL INSPECTION - Eye Exam Eye Exam: Normal appearance - ENT Exam ENT Exam: Mucous Membranes Moist - Respiratory Exam Respiratory Exam: Clear to Ausculation Bilateral - Cardiovascular Exam Cardiovascular Exam: REGULAR RHYTHM - GI/Abdominal Exam GI & Abdominal Exam: Normal Bowel Sounds - Neurological Exam Neurological Exam: CN II-XII Intact, Oriented x3 Assessment and Plan (1) Cellulitis of foot Status: Acute (2) Hypertension Status: Chronic (3) Infected wound Status: Acute - Assessment and Plan (Free Text) Plan: Cont iv antibiotics cont meds Cont tx.
--- NOTE | 2017-02-27 10:57 | CP.PCM.DIS ---
Provider - Provider Date of Admission: 02/21/17 17:47 Attending physician: Javier Herndon MD Time Spent in preparation of Discharge (in minutes): 30 Diagnosis - Discharge Diagnosis (1) Cellulitis of foot Status: Acute (2) Hypertension Status: Chronic (3) Infected wound Status: Acute Hospital Course - Lab Results Lab Results: Micro Results 02/24/17 12:24 Foot - Right Gram Stain - Final 02/24/17 12:24 Foot - Right Wound Culture - Final Staphylococcus Aureus 02/21/17 18:00 Foot - Right Gram Stain - Final 02/21/17 18:00 Foot - Right Wound Culture - Final Pseudomonas Aeruginosa Most Recent Lab Values WBC 12.1 K/uL (4.8-10.8) H 02/26/17 06:05 RBC 3.27 Mil/uL (4.40-5.90) L 02/26/17 06:05 Hgb 10.7 g/dL (12.0-18.0) L 02/26/17 06:05 Hct 31.9 % (35.0-51.0) L 02/26/17 06:05 MCV 97.7 fl (80.0-94.0) H 02/26/17 06:05 MCH 32.7 pg (27.0-31.0) H 02/26/17 06:05 MCHC 33.5 g/dL (33.0-37.0) 02/26/17 06:05 RDW 14.2 % (11.5-14.5) 02/26/17 06:05 Plt Count 469 K/uL (130-400) H 02/26/17 06:05 MPV 7.0 fl (7.2-11.7) L 02/24/17 06:44 Neut % (Auto) 65.9 % (50.0-75.0) 02/24/17 06:44 Lymph % (Auto) 20.7 % (20.0-40.0) 02/24/17 06:44 Hitchcock % (Auto) 10.6 % (0.0-10.0) H 02/24/17 06:44 Eos % (Auto) 1.6 % (0.0-4.0) 02/24/17 06:44 Baso % (Auto) 1.2 % (0.0-2.0) 02/24/17 06:44 Neut # 7.8 K/uL (1.8-7.0) H 02/24/17 06:44 Lymph # 2.4 K/uL (1.0-4.3) 02/24/17 06:44 Hitchcock # 1.3 K/uL (0.0-0.8) H 02/24/17 06:44 Eos # 0.2 K/uL (0.0-0.7) 02/24/17 06:44 Baso # 0.1 K/uL (0.0-0.2) 02/24/17 06:44 ESR 101 mm/hr (0-20) H 02/22/17 11:04 Retic Count 1.7 % (0.5-1.5) H 02/22/17 11:04 PT 10.0 SECONDS (9.6-11.2) 02/24/17 06:44 INR 0.96 (0.92-1.08) 02/24/17 06:44 APTT 29.7 SECONDS (23.3-32.5) 02/24/17 06:44 pO2 32 mm/Hg (30-55) 02/21/17 17:54 VBG pH 7.40 (7.32-7.43) 02/21/17 17:54 VBG pCO2 46 mmHg (40-60) 02/21/17 17:54 VBG HCO3 26.3 mmol/L 02/21/17 17:54 VBG Total CO2 29.9 mmol/L (22-28) H 02/21/17 17:54 VBG O2 Sat (Calc) 65.4 % (40-65) H 02/21/17 17:54 VBG Base Excess 3.0 mmol/L (0.0-2.0) H 02/21/17 17:54 VBG Potassium 4.1 mmol/L (3.6-5.2) 02/21/17 17:54 Sodium 133.0 mmol/L (132-148) 02/21/17 17:54 Chloride 103.0 mmol/L (98-107) 02/21/17 17:54 Glucose 105 mg/dL (75-110) 02/21/17 17:54 Lactate 1.6 mmol/L (0.7-2.1) 02/21/17 17:54 FiO2 21.0 % 02/21/17 17:54 Sodium 137 mmol/l (132-148) 02/26/17 06:05 Potassium 4.2 MMOL/L (3.6-5.0) 02/26/17 06:05 Chloride 102 mmol/L (98-107) 02/26/17 06:05 Carbon Dioxide 26 mmol/L (22-30) 02/26/17 06:05 Anion Gap 13 (10-20) 02/26/17 06:05 BUN 14 mg/dl (9-20) 02/26/17 06:05 Creatinine 0.9 mg/dL (0.8-1.5) 02/26/17 06:05 Est GFR ( Amer) > 60 02/26/17 06:05 Est GFR (Non-Af Amer) > 60 02/26/17 06:05 Random Glucose 89 mg/dL (75-110) 02/26/17 06:05 Calcium 9.4 mg/dL (8.4-10.2) 02/26/17 06:05 Total Bilirubin 0.3 mg/dl (0.2-1.3) 02/26/17 06:05 AST 32 U/L (17-59) 02/26/17 06:05 ALT 25 U/L (21-72) 02/26/17 06:05 Alkaline Phosphatase 56 U/L (38-126) 02/26/17 06:05 Total Protein 6.4 G/DL (6.3-8.2) 02/26/17 06:05 Albumin 3.2 g/dL (3.5-5.0) L D 02/26/17 06:05 Globulin 3.2 gm/dL (2.2-3.9) 02/26/17 06:05 Albumin/Globulin Ratio 1.0 (1.0-2.1) 02/26/17 06:05 Venous Blood Potassium 4.1 mmol/L (3.6-5.2) 02/21/17 17:54 Vancomycin Trough 13.3 ug/mL (5.0-10.0) H 02/25/17 06:30 Blood Type A POSITIVE 02/21/17 16:40 Blood Type Confirm A POSITIVE 02/21/17 20:45 Antibody Screen Negative 02/21/17 16:40 BBK History Checked No verified bt 02/21/17 16:40 - Hospital Course Hospital Course: This is a 66 y/o male admitted for infected foot. Started on IV antibiotics and C and S showed Staph and Pseudomonas both sensitive to Cipro. he was seen by Podiatry and Dr carl and wound debridement was persormed, he was staretd on Pt and responded well to Iv antibiotics he was sent home on po meds Cipro and advised to follow up with Dr carl and Dr dexter. Discharge Exam - Head Exam Head Exam: NORMAL INSPECTION - Eye Exam Eye Exam: Normal appearance - Respiratory Exam Respiratory Exam: NORMAL BREATHING PATTERN - Cardiovascular Exam Cardiovascular Exam: REGULAR RHYTHM - GI/Abdominal Exam GI & Abdominal Exam: Normal Bowel Sounds - Neurological Exam Neurological exam: CN II-XII Intact, Oriented x3 Discharge Plan - Follow Up Plan Condition: FAIR Disposition: HOME/ ROUTINE Additional Instructions: Rx given for po antibiotics advised to follow up with Dr Dexter.
[2017-02-27 12:38] LABS: HEMATOCRIT 33.1 % (35.0-51.0); MEAN CELL VOLUME 96.2 fl (80.0-94.0); MEAN CORPUSCULAR HEMOGLOBIN 33.3 pg (27.0-31.0); MEAN CORPUSCULAR HGB CONC 34.7 g/dL (33.0-37.0); WHITE BLOOD COUNT 10.7 K/uL (4.8-10.8)
[2017-02-28] MEDS: Piperacillin/Tazobact 3.375 GM in Sodium Chloride 0.9% 100 ML IVPB SCH ×3 (00:35→16:26)
[2017-02-28] MEDS: Oxycodone/Acetaminophen 5/325 mg Tab PO PRN ×4 (00:44→21:07)
[2017-02-28] MEDS ORDERED: Menthol/Methyl Salicylate Oinment TOP PRN (10:12)
--- NOTE | 2017-02-28 10:12 | CP.PCM.PN ---
Subjective - Date & Time of Evaluation Date of Evaluation: 02/28/17 Time of Evaluation: 10:09 - Subjective Subjective: Patient remains stable He was advised yesterday to have IV antibiotics for few more days. Has no fever Noted elevated WBC yesterday Complains of some small painful lumps on the left hand Objective - Vital Signs/Intake and Output Vital Signs (last 24 hours): Temp Pulse Resp BP Pulse Ox 97.8 F 52 L 20 127/80 100 02/28/17 07:40 02/28/17 07:40 02/28/17 07:40 02/28/17 07:40 02/28/17 07:40 - Medications Medications: Current Medications Clopidogrel Bisulfate (Plavix) 75 mg PO DAILY [facility] Last Admin: 02/28/17 08:05 Dose: 75 mg Docusate Sodium (Colace) 100 mg PO DAILY [facility] Last Admin: 02/28/17 08:03 Dose: 100 mg Heparin Sodium (Porcine) (Heparin) 5,000 units SC Q8 [facility] PRN Reason: Protocol Last Admin: 02/28/17 08:05 Dose: 5,000 units Piperacillin Sod/Tazobactam (Sod 3.375 gm/ Sodium Chloride) 100 mls @ 100 mls/ hr IVPB Q8 [facility] Last Admin: 02/28/17 08:10 Dose: 100 mls/hr Ketorolac Tromethamine (Toradol) 10 mg PO Q6 PRN PRN Reason: Pain, moderate (4-7) Lactulose (Enulose) 10 gm PO DAILY PRN PRN Reason: Constipation Last Admin: 02/26/17 08:43 Dose: 10 gm Losartan Potassium (Cozaar) 100 mg PO DAILY [facility] Last Admin: 02/28/17 08:05 Dose: 100 mg Oxycodone/Acetaminophen (Percocet 5/325 Mg Tab) 1 tab PO Q4 PRN PRN Reason: Pain, moderate (4-7) Stop: 03/02/17 00:20 Last Admin: 02/28/17 08:00 Dose: 1 tab - Labs Labs: 02/27/17 12:35 02/26/17 06:05 PT 10.0 SECONDS (9.6-11.2) 02/24/17 06:44 INR 0.96 (0.92-1.08) 02/24/17 06:44 APTT 29.7 SECONDS (23.3-32.5) 02/24/17 06:44 - Head Exam Head Exam: NORMAL INSPECTION - Eye Exam Eye Exam: Normal appearance - Respiratory Exam Respiratory Exam: NORMAL BREATHING PATTERN - Cardiovascular Exam Cardiovascular Exam: REGULAR RHYTHM - GI/Abdominal Exam GI & Abdominal Exam: Normal Bowel Sounds - Neurological Exam Neurological Exam: CN II-XII Intact, Oriented x3 - Psychiatric Exam Psychiatric exam: Normal Mood Assessment and Plan (1) Infected wound Status: Acute (2) Hypertension Status: Chronic (3) Cellulitis of foot Status: Acute - Assessment and Plan (Free Text) Plan: cont meds cont IV antibiotics voltaren gel
--- NOTE | 2017-02-28 11:00 | CP.PCM.PN ---
Subjective - Date & Time of Evaluation Date of Evaluation: 02/28/17 Time of Evaluation: 09:00 - Subjective Subjective: swelling less IV rx in progress Objective - Vital Signs/Intake and Output Vital Signs (last 24 hours): Temp Pulse Resp BP Pulse Ox 97.8 F 52 L 20 127/80 100 02/28/17 07:40 02/28/17 07:40 02/28/17 07:40 02/28/17 07:40 02/28/17 07:40 - Medications Medications: Current Medications Camphor/Menthol (Bengay) 1 applic TOP QID PRN PRN Reason: Pain, Mild (1-3) Clopidogrel Bisulfate (Plavix) 75 mg PO DAILY [facility] Last Admin: 02/28/17 08:05 Dose: 75 mg Docusate Sodium (Colace) 100 mg PO DAILY [facility] Last Admin: 02/28/17 08:03 Dose: 100 mg Heparin Sodium (Porcine) (Heparin) 5,000 units SC Q8 [facility] PRN Reason: Protocol Last Admin: 02/28/17 08:05 Dose: 5,000 units Piperacillin Sod/Tazobactam (Sod 3.375 gm/ Sodium Chloride) 100 mls @ 100 mls/ hr IVPB Q8 [facility] Last Admin: 02/28/17 08:10 Dose: 100 mls/hr Ketorolac Tromethamine (Toradol) 10 mg PO Q6 PRN PRN Reason: Pain, moderate (4-7) Lactulose (Enulose) 10 gm PO DAILY PRN PRN Reason: Constipation Last Admin: 02/26/17 08:43 Dose: 10 gm Losartan Potassium (Cozaar) 100 mg PO DAILY [facility] Last Admin: 02/28/17 08:05 Dose: 100 mg Oxycodone/Acetaminophen (Percocet 5/325 Mg Tab) 1 tab PO Q4 PRN PRN Reason: Pain, moderate (4-7) Stop: 03/02/17 00:20 Last Admin: 02/28/17 08:00 Dose: 1 tab - Labs Labs: 02/27/17 12:35 02/26/17 06:05 PT 10.0 SECONDS (9.6-11.2) 02/24/17 06:44 INR 0.96 (0.92-1.08) 02/24/17 06:44 APTT 29.7 SECONDS (23.3-32.5) 02/24/17 06:44 - Constitutional Appears: Non-toxic - Head Exam Head Exam: NORMOCEPHALIC - Eye Exam Eye Exam: absent: Scleral icterus - ENT Exam ENT Exam: Mucous Membranes Dry - Neck Exam Neck Exam: absent: Lymphadenopathy - Respiratory Exam Respiratory Exam: Decreased Breath Sounds, Clear to Ausculation Bilateral - Cardiovascular Exam Cardiovascular Exam: REGULAR RHYTHM, +S1, +S2 - GI/Abdominal Exam GI & Abdominal Exam: Distended, Soft - Rectal Exam Rectal Exam: Deferred - Exam Exam: NORMAL INSPECTION - Extremities Exam Extremities Exam: Normal Inspection - Back Exam Back Exam: absent: CVA tenderness (L), CVA tenderness (R), paraspinal tenderness Assessment and Plan (1) Infected wound Status: Acute (2) Hypertension Status: Chronic (3) Cellulitis of foot Status: Acute
--- NOTE | 2017-02-28 13:03 | CP.PCM.PN ---
Subjective - Date & Time of Evaluation Date of Evaluation: 02/28/17 Time of Evaluation: 14:00 - Subjective Subjective: PODIATRY PROGRESS NOTE FOR DR. HINTON: 66 yo male patient seen at bedside w/ Dr. Hinton present POD #4 soft tissue debridement of right hallux ulceration. Pt seen resting comfortably in bed at time of visit. Denies any acute events overnight. Denies pain, numbness or tingling to the right foot today. Does complain of a new onset "bump" on his left forearm, denies pain but is noticeable to patient. Getting OOB to bathroom w/ walker and nurse supervision. Is eager to go home and get back to work. Objective - Vital Signs/Intake and Output Vital Signs (last 24 hours): Temp Pulse Resp BP Pulse Ox 97.8 F 52 L 20 127/80 100 02/28/17 07:40 02/28/17 07:40 02/28/17 07:40 02/28/17 07:40 02/28/17 07:40 - Medications Medications: Current Medications Camphor/Menthol (Bengay) 1 applic TOP QID PRN PRN Reason: Pain, Mild (1-3) Clopidogrel Bisulfate (Plavix) 75 mg PO DAILY [facility] Last Admin: 02/28/17 08:05 Dose: 75 mg Docusate Sodium (Colace) 100 mg PO DAILY [facility] Last Admin: 02/28/17 08:03 Dose: 100 mg Heparin Sodium (Porcine) (Heparin) 5,000 units SC Q8 [facility] PRN Reason: Protocol Last Admin: 02/28/17 08:05 Dose: 5,000 units Piperacillin Sod/Tazobactam (Sod 3.375 gm/ Sodium Chloride) 100 mls @ 100 mls/ hr IVPB Q8 [facility] Last Admin: 02/28/17 08:10 Dose: 100 mls/hr Ketorolac Tromethamine (Toradol) 10 mg PO Q6 PRN PRN Reason: Pain, moderate (4-7) Lactulose (Enulose) 10 gm PO DAILY PRN PRN Reason: Constipation Last Admin: 02/26/17 08:43 Dose: 10 gm Losartan Potassium (Cozaar) 100 mg PO DAILY [facility] Last Admin: 02/28/17 08:05 Dose: 100 mg Oxycodone/Acetaminophen (Percocet 5/325 Mg Tab) 1 tab PO Q4 PRN PRN Reason: Pain, moderate (4-7) Stop: 03/02/17 00:20 Last Admin: 02/28/17 08:00 Dose: 1 tab - Labs Labs: 02/27/17 12:35 02/26/17 06:05 PT 10.0 SECONDS (9.6-11.2) 02/24/17 06:44 INR 0.96 (0.92-1.08) 02/24/17 06:44 APTT 29.7 SECONDS (23.3-32.5) 02/24/17 06:44 - Constitutional Appears: Well, Non-toxic, No Acute Distress - Extremities Exam Extremities Exam: absent: Calf Tenderness Additional comments: RLE exam: Dressing appears c/d/i with no strikethrough noted VASC- DP/PT pulses fully palpable, skin temp runs warm to cool, no pedal edema noted NEURO- gross sensation is intact DERM- ulceration noted to plantar aspect hallux IPJ appears 100% granular to wound bed (measures 3.0x1.0x0.4cm), no purulence on compression, slight serous drainage is noted, exposed tendon seen, no malodor, no fluctuance, slight tracking noted plantar proximally ORTHO- slight tenderness to wound bed - Neurological Exam Neurological Exam: Alert - Psychiatric Exam Psychiatric exam: Normal Affect, Normal Mood Assessment and Plan - Assessment and Plan (Free Text) Assessment: 66 yo male patient w/ pmh of stroke, HTN, lumbar radiculopathy seen at bedside POD #4 soft tissue debridement of right hallux w/ resolved cellulitis Plan: -Pt S&E at bedside -Discussed w/ attending Dr. Hinton -Chart, labs, vitals reviewed: afebrile, wbc down to 10.7 today -Wound cx (02/22): + pseudomonas -Intra-op wound cx (02/24): staph aureus light growth -C/w vanc and zosyn IV per ID Dr. Higginbotham -wound flushed with sterile saline, dressed w/ DSD -pt may wb to the right heel w/ surgical shoe -Phys therapy recommends discharge home with tall standard walker -Stable per podiatry -Will continue to follow -Pt is to follow up at the wound care center with Dr. Hinton following discharge
[2017-03-01] MEDS: Piperacillin/Tazobact 3.375 GM in Sodium Chloride 0.9% 100 ML IVPB SCH ×2 (00:58→10:33)
[2017-03-01] MEDS: Oxycodone/Acetaminophen 5/325 mg Tab PO PRN ×2 (02:24→10:44)
--- NOTE | 2017-03-01 06:50 | CP.PCM.PN ---
Subjective - Date & Time of Evaluation Date of Evaluation: 03/01/17 Time of Evaluation: 06:45 - Subjective Subjective: PODIATRY PROGRESS NOTE FOR DR. HINTON: 66 yo male patient seen at bedside today POD#5 soft tissue debridement of right hallux ulceration. Pt seen resting comfortably in bed at time of visit, denies any acute events overnight. Denies pain or discomfort to the right lower extremity. Back pain relieved w/ meds. Asking to go home today. Denies f/n/v/c/ sob/cp. Objective - Vital Signs/Intake and Output Vital Signs (last 24 hours): Temp Pulse Resp BP Pulse Ox 97.6 F 67 18 122/78 97 02/28/17 21:07 02/28/17 21:07 02/28/17 21:07 02/28/17 21:07 02/28/17 21:07 - Medications Medications: Current Medications Camphor/Menthol (Bengay) 1 applic TOP QID PRN PRN Reason: Pain, Mild (1-3) Last Admin: 02/28/17 16:23 Dose: 1 applic Clopidogrel Bisulfate (Plavix) 75 mg PO DAILY [facility] Last Admin: 02/28/17 08:05 Dose: 75 mg Docusate Sodium (Colace) 100 mg PO DAILY [facility] Last Admin: 02/28/17 08:03 Dose: 100 mg Heparin Sodium (Porcine) (Heparin) 5,000 units SC Q8 [facility] PRN Reason: Protocol Last Admin: 03/01/17 00:59 Dose: 5,000 units Piperacillin Sod/Tazobactam (Sod 3.375 gm/ Sodium Chloride) 100 mls @ 100 mls/ hr IVPB Q8 [facility] Last Admin: 03/01/17 00:58 Dose: 100 mls/hr Ibuprofen (Motrin Tab) 600 mg PO Q8 [facility] Last Admin: 03/01/17 00:56 Dose: 600 mg Lactulose (Enulose) 10 gm PO DAILY PRN PRN Reason: Constipation Last Admin: 02/26/17 08:43 Dose: 10 gm Losartan Potassium (Cozaar) 100 mg PO DAILY [facility] Last Admin: 02/28/17 08:05 Dose: 100 mg Oxycodone/Acetaminophen (Percocet 5/325 Mg Tab) 1 tab PO Q4 PRN PRN Reason: Pain, moderate (4-7) Stop: 03/02/17 00:20 Last Admin: 03/01/17 02:24 Dose: 1 tab - Labs Labs: 02/27/17 12:35 02/26/17 06:05 PT 10.0 SECONDS (9.6-11.2) 02/24/17 06:44 INR 0.96 (0.92-1.08) 02/24/17 06:44 APTT 29.7 SECONDS (23.3-32.5) 02/24/17 06:44 - Constitutional Appears: Well, Non-toxic, No Acute Distress - Extremities Exam Extremities Exam: absent: Calf Tenderness Additional comments: RLE exam: Dressing appears c/d/i with no strikethrough noted VASC- DP/PT pulses fully palpable, skin temp runs warm to cool, no pedal edema noted NEURO- gross sensation is intact DERM- ulceration noted to plantar aspect hallux IPJ appears 100% granular to wound bed (measures 3.0x1.0x0.4cm), no purulence on compression, noserous drainag, exposed tendon seen, no malodor, no fluctuance, no tracking ORTHO- slight tenderness to wound bed - Neurological Exam Neurological Exam: Alert, Awake, Oriented x3 - Psychiatric Exam Psychiatric exam: Normal Affect, Normal Mood Assessment and Plan - Assessment and Plan (Free Text) Assessment: 66 yo male patient w/ pmh of stroke, HTN, lumbar radiculopathy seen at bedside POD #5 soft tissue debridement of right hallux w/ resolved cellulitis Plan: -Pt S&E at bedside -Discussed w/ attending Dr. Hinton -Chart, labs, vitals reviewed: afebrile, wbc 10.7 -Wound cx (02/22): + pseudomonas -Intra-op wound cx (02/24): staph aureus light growth -C/w vanc and zosyn IV per ID Dr. Higginbotham -wound flushed with sterile saline, dressed w/ DSD -pt may wb to the right heel w/ surgical shoe -Phys therapy recommends discharge home with tall standard walker -Stable per podiatry -Will continue to follow -Pt is to follow up at the wound care center with Dr. Hinton following discharge
[2017-03-01 07:36] VITALS: BP 141/79; RESP 20; TEMP 97.7; O2SAT 98
[2017-03-01 10:34] VITALS: PULSE 66
--- NOTE | 2017-03-01 10:42 | CP.PCM.PN ---
Subjective - Date & Time of Evaluation Date of Evaluation: 03/01/17 Time of Evaluation: 10:41 - Subjective Subjective: patient remains stable Has no fever Has no chest pain or SOB. Objective - Vital Signs/Intake and Output Vital Signs (last 24 hours): Temp Pulse Resp BP Pulse Ox 97.7 F 66 20 141/79 98 03/01/17 07:35 03/01/17 10:30 03/01/17 07:35 03/01/17 10:30 03/01/17 07:35 - Medications Medications: Current Medications Camphor/Menthol (Bengay) 1 applic TOP QID PRN PRN Reason: Pain, Mild (1-3) Last Admin: 02/28/17 16:23 Dose: 1 applic Clopidogrel Bisulfate (Plavix) 75 mg PO DAILY [facility] Last Admin: 03/01/17 10:33 Dose: 75 mg Docusate Sodium (Colace) 100 mg PO DAILY [facility] Last Admin: 03/01/17 10:28 Dose: 100 mg Heparin Sodium (Porcine) (Heparin) 5,000 units SC Q8 [facility] PRN Reason: Protocol Last Admin: 03/01/17 10:34 Dose: 5,000 units Piperacillin Sod/Tazobactam (Sod 3.375 gm/ Sodium Chloride) 100 mls @ 100 mls/ hr IVPB Q8 [facility] Last Admin: 03/01/17 10:33 Dose: 100 mls/hr Ibuprofen (Motrin Tab) 600 mg PO Q8 [facility] Last Admin: 03/01/17 10:32 Dose: 600 mg Lactulose (Enulose) 10 gm PO DAILY PRN PRN Reason: Constipation Last Admin: 02/26/17 08:43 Dose: 10 gm Losartan Potassium (Cozaar) 100 mg PO DAILY [facility] Last Admin: 03/01/17 10:30 Dose: 100 mg Oxycodone/Acetaminophen (Percocet 5/325 Mg Tab) 1 tab PO Q4 PRN PRN Reason: Pain, moderate (4-7) Stop: 03/02/17 00:20 Last Admin: 03/01/17 02:24 Dose: 1 tab - Labs Labs: 02/27/17 12:35 02/26/17 06:05 PT 10.0 SECONDS (9.6-11.2) 02/24/17 06:44 INR 0.96 (0.92-1.08) 02/24/17 06:44 APTT 29.7 SECONDS (23.3-32.5) 02/24/17 06:44 Assessment and Plan (1) Infected wound Status: Acute (2) Hypertension Status: Chronic (3) Cellulitis of foot Status: Acute
--- NOTE | 2017-03-01 12:10 | CP.PCM.PCO ---
Assessment/Plan - Assessment/Plan Assessment (Free Text): Pt stable, seen and cleared for d/c by all consultants and by Dr. Herndon. Rx Cipro given as per Dr. Higginbotham. Pt states he has no more percocet at home. Checked [facility] Rx, pt noted to have filled last Percocet Rx 01/24/17. Percocet Rx 4 tabs given in order to allow patient a few days to go to his pain specialist. Rx given for plavix. Pt made aware to f/u with Dr. Morales in 1-2 weeks. Pt to f/u with Dr. Jason and PMD.
== END 2017-03-01 13:48 | disposition home or self-care (01) | DRG 572 ==
LOC: H.ER 15:11 → H.ERHOLD 17:47 → H.MEDSURG1 20:36
PROVIDERS: ADMIT Family Medicine; ATTEND Family Medicine
PROC: 02HV33Z Insertion of Infusion Device into Superior Vena Cava, Percutaneous Approach (ICD-10-PCS; 2017-02-24)
PROC: 0JBQ0ZZ Excision of Right Foot Subcutaneous Tissue and Fascia, Open Approach (ICD-10-PCS; principal; 2017-02-24 07:45)
DX: L03.115 Cellulitis of right lower limb (principal); L97.519 Non-pressure chronic ulcer of other part of right foot with unspecified severity; I10 Essential (primary) hypertension; B96.5 Pseudomonas (aeruginosa) (mallei) (pseudomallei) as the cause of diseases classified elsewhere; B95.61 Methicillin susceptible Staphylococcus aureus infection as the cause of diseases classified elsewhere; G89.29 Other chronic pain; Z86.73 Personal history of transient ischemic attack (TIA), and cerebral infarction without residual deficits; M54.16 Radiculopathy, lumbar region; E78.00 Pure hypercholesterolemia, unspecified; I73.9 Peripheral vascular disease, unspecified